=== PATIENT | male | born 1985 | race Caucasian/White ===

== ENCOUNTER → 2020-06-11 11:07 | Outpatient (BNVA) | payer MEDICAID, SELFPAY | PROVIDERS: Referring Provider Internal Medicine; Visit Provider Surgery | DX: E66.01 Morbid (severe) obesity due to excess calories (principal) | CPT/HCPCS: 99212 ==

== ENCOUNTER 2020-07-02 07:57 | Outpatient (REF) | payer MEDICAID, SELFPAY ==
--- NOTE | 2020-07-02 | US_ITS ---
EXAMINATION: US COMPLETE ABDOMEN WITH LIVER ELASTOGRAPHY CLINICAL INFORMATION: Obesity COMPARISON: None. TECHNIQUE: Real-time imaging of the abdominal viscera. Noninvasive ultrasound liver fibrosis assessment is performed using Ronny ElastPQ point quantification shear wave elastography (pSWE) with a 5 MHz transducer. Multiple elastography samples are obtained. FINDINGS: PANCREAS: Not well visualized due to overlying bowel gas. ABDOMINAL AORTA: The proximal, middle, and distal aortic segments are normal in caliber. INFERIOR VENA CAVA: Visualized portions are normal. LIVER: Liver echotexture is increased. The liver is normal in contour. No focal lesion or intrahepatic biliary duct dilatation. The right lobe measures 20 cm in length. The left lobe measures 13 cm in length. Main portal vein is patent with appropriate hepatopedal flow. Shear wave elastography provides a median stiffness of 2.4 m/s (reference: normal median stiffness is 0.81 - 1.22 m/s). The IQR/median stiffness to assess sampling precision is 1.8 (reference: optimal IQR/median stiffness is under 0.3). Exam is limited due to sampling error. GALLBLADDER: Normal. The gallbladder is physiologically distended without evidence of stones, sludge, polyps, wall thickening or pericholecystic fluid. COMMON BILE DUCT: Normal in caliber measuring 0.6 cm in diameter. RIGHT KIDNEY: Normal. No hydronephrosis. No renal calculi or focal parenchymal lesions. The kidney measures 10 cm in maximum dimension. LEFT KIDNEY: Normal. No hydronephrosis. No renal calculi or focal parenchymal lesions. The kidney measures 11.5 cm in maximum dimension. SPLEEN: Normal. The spleen measures 11 cm in maximum dimension. FREE FLUID: None. US/US abdomen comp w elastography IMPRESSION: 1. Impression Enlarged echogenic liver probably representing fatty infiltration. Limited visualization of the pancreas. 2. Elastography: Limited due to sampling error.
--- NOTE | 2020-07-02 08:36 | FL_ITS ---
EXAMINATION: FL UPPER GI SERIES CLINICAL INFORMATION: Bariatric service evaluation. COMPARISON: None TECHNIQUE: Upper GI series is performed using fluoroscopic evaluation in addition to multiple fluoroscopic spot views. The patient is imaged both upright and prone and using both thick and thin barium sulfate along with effervescent granules. Fluoroscopy time: 1.1 minutes DAP: 45.013 Gycm2 Fluoroscopic spot images: 15 FINDINGS: There is normal esophageal motility. There is no obstruction, stricture, ulceration, or hernia. No gastroesophageal reflux is demonstrated. The stomach shows no thickened folds or ulcer crater or outlet obstruction. The duodenal bulb is pliable and without ulcer crater or scarring. The post bulbar duodenum the jejunal mucosal pattern are unremarkable. There is incidental small diverticulum descending duodenum, perhaps 1 cm. FL/FL upper GI series IMPRESSION: Normal study. Tiny duodenal diverticulum.
== END 2020-07-02 07:58 | disposition home or self-care (01) ==
LOC: HO.US 07:57
PROVIDERS: Visit Provider Surgery
DX: Z01.818 Encounter for other preprocedural examination (principal); E66.9 Obesity, unspecified; K21.9 Gastro-esophageal reflux disease without esophagitis
CPT/HCPCS: 74240; 76705; 76981

== ENCOUNTER → 2020-07-04 07:56 | Outpatient (REF) | payer MEDICAID, SELFPAY ==
--- NOTE | 2020-07-04 08:15 | CA_ITS ---
Transthoracic Echocardiogram Patient (Last, First, Middle): Иван Lino, Gender: Male Date of : 1985 Age: 35 Procedure Date: 07/04/2020 Procedure Type: Transthoracic Echocardiogram Location: OP Height: 177.8 cm Weight: 204.12 kg BSA: 2.95 m2 Heart Rate: bpm BP: 140 / 82 mmHg Hr Operations Advisor: DAVINA Referring MD: Kane Skelton MD Carriage Feeder: Tristen Beck MD Symptoms: DYSPNEA ON EXERTION, I10 HTN PRE OP Z01.818 Study Quality: Technically Difficult ECG Rhythm: Sinus Conclusions: - 1. Low normal LV systolic function with mild LVH with normal diastolic function 2. Normal cardiac valvular Doppler 3. Normal RV systolic pressure 4. No gross pericardial effusion Findings Procedure Information Contrast agent, definity, is being given per protocol without apparent complications. Left Ventricle Normal left ventricular cavity size. There is mildly increased left ventricular wall thickness. The left ventricular systolic function is low normal. The visually estimated ejection fraction is between 50-55%. Diastolic function is normal for age. Right Ventricle Normal right ventricular cavity size and systolic function. Atria The left atrium is likely dilated. Interatrial shunt cannot be excluded. The right atrium was not well visualized. Aortic Valve The aortic valve structure and function is likely normal. There is no aortic valve stenosis. There is no aortic valve regurgitation. Mitral Valve Likely normal mitral valve structure and function. There is trace mitral valve regurgitation. There is no mitral valve stenosis. Pulmonic Valve The pulmonic valve was not well visualized. Tricuspid Valve Likely normal tricuspid valve structure and function. There is trace tricuspid valve regurgitation. The right ventricular systolic pressure is normal. The right ventricular systolic pressure is 21 mmHg. There is no evidence of pulmonary hypertension. Great Vessels All visible segments of the aorta are normal in size. The pulmonary artery was not well visualized. Venous The inferior vena cava is normal in size and collapses greater than 50% with inspiration. Pericardium/Pleural There is no evidence of pericardial effusion. Prior Study Comparison No prior study available for comparison. Measurements 2D Linear Measurements IVSd: 1.20 0.6-0.9/0.6-1.0 cm LVIDd: 5.28 3.9-5.3/4.2-5.9 cm LVIDd Index: 1.79 2.4-3.2/2.2-3.1 cm/m2 LVIDs: 3.57 2.0-3.6 cm LVPWd: 1.21 0.7-1.1 cm Ao Root: 3.50 2.1-3.5 cm LA Diam: 4.50 2.7-3.8/3.0-4.0 cm LAIDs Index: 1.53 1.5-2.3 cm/m2 LV Mass: 319.86 67-162/88-224 g LV Mass Index: 108.43 43-95/49-115 g/m2 LVOT Diam: 2.50 3.0+(-)1.3 cm 2D Systolic Function EF 4C: 40.30 >55% EF 2C: 42.70 >55% Mitral Valve MV Pk E: 0.84 MV PK A: 0.52 MV Decel Time: 211.00 E/A: 1.60 E'Lateral: 10.80 E'Medial: 9.28 E/E' Med: 9.00 E/E' Lat: 7.80 PHT: 62.00 MVA PHT: 3.55 Decel Harper: 3.97 Aortic Valve AoV Pk Anson: 1.14 AoV Mn Anson: 0.79 AoV VTI: 0.24 AoV Pk Grad: 5.00 Aov Mn Grad: 3.00 AIDEN Cont.VTI: 4.83 LVOT LVOT Pk Anson: 1.00 LVOT Mn Anson: 0.65 LVOT VTI: 0.23 LVOT Pk Grad: 4.00 LVOT Mn Grad: 2.00 LVOT Diam: 2.50 LVOT Area: 4.91 Diastolic Function MV Pk E: 0.84 MV Pk A: 0.52 E/A: 1.60 E'Medial: 9.28 E/E' Med: 9.00 E' Laterial: 10.80 E/E' Lat: 7.80 Tricuspid Valve TR Pk Anson: 1.96 TR Pk Grad: 15.00 RA Press: 3.00 RVSP: 21.00 Great Vessels Aorta Ao Root-2D: 3.50 2.0-3.7 cm Ao Asc: 2.80 2.1-3.4 cm Pulmonary Valve PV Pk Anson: 1.26 Peak PV Grad: 6.00 Updated in Other Vendor System with Status of Final Tristen Beck MD electronically signed on 07/04/2020 2:52:37 PM with status of Final
== END ==
LOC: HO.CARD 07:56
PROVIDERS: PCP Internal Medicine; Visit Provider Internal Medicine Pulmonary Disease
DX: Z01.818 Encounter for other preprocedural examination (principal); I10 Essential (primary) hypertension
CPT/HCPCS: 93306; Q9957

== ENCOUNTER → 2020-07-10 10:50 | Outpatient (BNVA) | payer MEDICAID, SELFPAY | PROVIDERS: PCP Internal Medicine; Referring Provider Internal Medicine; Visit Provider Surgery | DX: Z76.89 Persons encountering health services in other specified circumstances (principal) ==

== ENCOUNTER → 2020-07-12 13:08 | Outpatient (BNVA) | payer MEDICAID, SELFPAY | PROVIDERS: PCP Internal Medicine; Referring Provider Internal Medicine; Visit Provider Surgery | DX: L73.9 Follicular disorder, unspecified (principal) | CPT/HCPCS: 46600; 99202 ==

== ENCOUNTER → 2020-07-30 08:03 | Outpatient (BNVA) | payer MEDICAID, SELFPAY | PROVIDERS: PCP Internal Medicine; Referring Provider Internal Medicine; Visit Provider Surgery | DX: Z76.89 Persons encountering health services in other specified circumstances (principal) ==

== ENCOUNTER → 2020-08-31 08:15 | Outpatient (BNVA) | payer MEDICAID, SELFPAY | PROVIDERS: PCP Internal Medicine; Visit Provider Surgery | DX: Z76.89 Persons encountering health services in other specified circumstances (principal) ==

== ENCOUNTER → 2020-09-21 10:48 | Outpatient (BNVA) | payer MEDICAID, SELFPAY | PROVIDERS: PCP Internal Medicine; Visit Provider Physician Assistant ==

== ENCOUNTER → 2020-09-24 08:12 | Outpatient (BNVA) | payer MEDICAID, SELFPAY | PROVIDERS: PCP Internal Medicine; Visit Provider Surgery ==

== ENCOUNTER → 2020-10-03 09:04 | Outpatient (BNVA) | payer MEDICAID, SELFPAY | PROVIDERS: PCP Internal Medicine; Visit Provider Internal Medicine Pulmonary Disease | DX: G47.33 Obstructive sleep apnea (adult) (pediatric) (principal) | CPT/HCPCS: 99212 ==

== ENCOUNTER → 2020-10-22 08:16 | Outpatient (BNVA) | payer MEDICAID, SELFPAY | PROVIDERS: PCP Internal Medicine; Visit Provider Surgery ==

== ENCOUNTER → 2020-11-21 08:10 | Outpatient (BNVA) | payer MEDICAID, SELFPAY | PROVIDERS: PCP Internal Medicine; Visit Provider Surgery ==

== ENCOUNTER → 2021-01-08 10:19 | Outpatient (BNVA) | payer MEDICAID, SELFPAY | PROVIDERS: PCP Internal Medicine; Visit Provider Internal Medicine Pulmonary Disease | DX: G47.33 Obstructive sleep apnea (adult) (pediatric) (principal); E66.01 Morbid (severe) obesity due to excess calories | CPT/HCPCS: 99212 ==

== ENCOUNTER → 2021-01-24 10:11 | Outpatient (BNVA) | payer MEDICAID, SELFPAY | PROVIDERS: PCP Internal Medicine; Referring Provider Internal Medicine; Visit Provider Surgery | DX: L73.9 Follicular disorder, unspecified (principal) | CPT/HCPCS: 99212 ==

== ENCOUNTER 2022-01-29 11:48 | Outpatient (REF) | payer MEDICAID, SELFPAY ==
--- NOTE | ~2022-01-29 | XR_ITS ---
EXAMINATION: XR LUMBOSACRAL SPINE CLINICAL INFORMATION: Low back pain COMPARISON: None TECHNIQUE: Three views of the lumbosacral spine. FINDINGS: 5 nonrib-bearing lumbar vertebral bodies are visualized. Alignment is within normal limits. Lumbar vertebral body heights are maintained. There is moderate narrowing of the L5/S1 disc space height. Sacroiliac joints are grossly symmetric. The pelvic ring appears intact. XR/XR lumbar spine 2-3V IMPRESSION: Mild degenerative changes of the lower lumbar spine.
== END 2022-01-29 11:49 | disposition home or self-care (01) ==
LOC: HO.XRAY 11:48
PROVIDERS: Visit Provider Internal Medicine
DX: M54.50 Low back pain, unspecified (principal)
CPT/HCPCS: 72100

== ENCOUNTER → 2022-08-04 08:58 | Outpatient (BNVA) | payer MEDICAID, SELFPAY | PROVIDERS: PCP Internal Medicine; Visit Provider Surgery | DX: K62.89 Other specified diseases of anus and rectum (principal) | CPT/HCPCS: 99212 ==

== ENCOUNTER → 2022-09-29 08:50 | Outpatient (BNVA) | payer MEDICAID, SELFPAY | PROVIDERS: PCP Internal Medicine; Referring Provider Internal Medicine; Visit Provider Surgery | DX: K61.0 Anal abscess (principal); I10 Essential (primary) hypertension; E66.01 Morbid (severe) obesity due to excess calories; Z68.44 Body mass index [BMI] 60.0-69.9, adult | CPT/HCPCS: 99212 ==

== ENCOUNTER 2023-03-25 10:25 | Outpatient (REF) | payer MEDICAID, SELFPAY ==
[2023-03-25 14:50] LABS: MANUAL DIFF FLAG NO
[2023-03-25 14:56] LABS: Basophils Absolute Auto 0.1 X10*3/uL (0.0-0.2); Basophils Percent Auto 0.7 % (0-2); Eosinophils Absolute Auto 0.2 X10*3/uL (0.0-0.4); Eosinophils Percent Auto 2.7 % (0-4); Hematocrit 46.5 % (42.0-52.0); Hemoglobin 14.3 g/dl (14.0-18.0); Imm Gran Abs Auto 0.04 X10*3/uL (0.00-0.03); Imm Gran Pct Auto 0.5 % (0.0-0.4); Lymphocytes Absolute Auto 1.7 X10*3/uL (1.2-4.9); Lymphocytes Percent Auto 20.3 % (20-40); Mean Corpuscular HGB Conc 30.8 g/dl (31.0-36.0); Mean Corpuscular Hemoglobin 28.9 pg (27.0-33.0); Mean Corpuscular Volume 93.9 fL (80.0-98.0); Mean Platelet Volume 12.6 fL (9.4-12.4); Monocytes Absolute Auto 0.6 X10*3/uL (0.1-1.2); Monocytes Percent Auto 7.4 % (2-11); Neutrophils Absolute Auto 5.7 x10*3/uL (2.0-8.3); Neutrophils Percent Auto 68.4 % (45-73); Platelet Count 193 X10*3/uL (160-400); Red Blood Count 4.95 X10*6/uL (4.60-5.80); Red Cell Distribution Width 14.4 % (11.0-16.0); White Blood Count 8.4 X10*3/uL (4.8-10.8)
[2023-03-25 15:03] LABS: Estimated Average Glucose 100 mg/dL; Hemoglobin A1c % 5.1 %
[2023-03-25 16:01] LABS: Alanine Aminotransferase 11 U/L (0-40); Albumin Level 3.7 g/dL (3.5-5.0); Alkaline Phosphatase 143 U/L (39-117); Anion Gap 17 (12-20); Aspartate Amino Transferase 13 U/L (5-37); Bilirubin Direct 0.2 mg/dL (0.0-0.5); Bilirubin Total 0.4 mg/dL (0.0-1.0); Blood Urea Nitrogen 17 mg/dL (9-16); Calcium 9.3 mg/dL (8.4-10.2); Carbon Dioxide 23 mmol/L (22-29); Chloride 108 mmol/L (96-108); Cholesterol 152 mg/dL; Estimated Glomerular Filt Rate 46; Glucose Fasting 61 mg/dL (60-99); HDL Cholesterol 35 mg/dL; LDL Cholesterol Calculated 90 mg/dl; Sodium 143 mmol/L (135-145); Total Protein 7.7 g/dL (6.5-8.0); Triglycerides 135 mg/dL
== END 2023-03-25 10:26 | disposition home or self-care (01) ==
LOC: HO.CHCLDS 10:25
PROVIDERS: Visit Provider Internal Medicine
DX: E66.01 Morbid (severe) obesity due to excess calories (principal)
CPT/HCPCS: 36415; 80053; 80061; 80076; 82248; 83036; 85025

== ENCOUNTER 2023-07-24 11:11 | Outpatient (REF) | payer MEDICAID, SELFPAY ==
[2023-07-24 14:51] LABS: Anion Gap 12 (12-20); Blood Urea Nitrogen 18 mg/dL (9-16); Carbon Dioxide 25 mmol/L (22-29); Chloride 109 mmol/L (96-108); Estimated Glomerular Filt Rate 44; Glucose Random 92 mg/dL (60-115); Potassium 4.6 mmol/L (3.3-5.1); Sodium 141 mmol/L (135-145)
== END 2023-07-24 11:12 | disposition home or self-care (01) ==
LOC: HO.CHCLDS 11:11
PROVIDERS: Visit Provider Internal Medicine
DX: N17.9 Acute kidney failure, unspecified (principal)
CPT/HCPCS: 36415; 80048

== ENCOUNTER 2023-11-04 10:22 | Outpatient (REF) | payer MEDICAID, SELFPAY ==
[2023-11-04 14:14] LABS: Appearance Urine Clear; Color Urine Yellow; Glucose Urine UA Negative (Negative); Leukocyte Esterase Urine Negative (Negative); Nitrite Urine Negative (Negative); Urine Blood Negative (Negative); Urine Ketones Trace mg/dL (Negative); Urine Protein Trace mg/dL (Neg-Trace)
[2023-11-04 14:18] LABS: MANUAL DIFF FLAG NO
[2023-11-04 14:22] LABS: Basophils Absolute Auto 0.1 X10*3/uL (0.0-0.2); Basophils Percent Auto 0.5 % (0-2); Eosinophils Absolute Auto 0.4 X10*3/uL (0.0-0.4); Eosinophils Percent Auto 3.2 % (0-4); Hematocrit 43.1 % (42.0-52.0); Hemoglobin 13.7 g/dl (14.0-18.0); Imm Gran Abs Auto 0.06 X10*3/uL (0.00-0.03); Imm Gran Pct Auto 0.5 % (0.0-0.4); Lymphocytes Absolute Auto 1.9 X10*3/uL (1.2-4.9); Lymphocytes Percent Auto 17.2 % (20-40); Mean Corpuscular HGB Conc 31.8 g/dl (31.0-36.0); Mean Corpuscular Hemoglobin 28.5 pg (27.0-33.0); Mean Corpuscular Volume 89.6 fL (80.0-98.0); Mean Platelet Volume 12.5 fL (9.4-12.4); Monocytes Absolute Auto 0.8 X10*3/uL (0.1-1.2); Monocytes Percent Auto 7.1 % (2-11); Neutrophils Absolute Auto 7.9 x10*3/uL (2.0-8.3); Neutrophils Percent Auto 71.5 % (45-73); Platelet Count 221 X10*3/uL (160-400); Red Blood Count 4.81 X10*6/uL (4.60-5.80); Red Cell Distribution Width 14.9 % (11.0-16.0)
[2023-11-04 14:47] LABS: Creatinine Urine 316.51 mg/dL; Microalbum/Creatinine Ratio Ur 15.4 ug/mg cr (<30); Protein/Creatinine Ratio, Ur 0.08 (<0.2); Total Protein Urine Random 26 mg/dL (<12)
[2023-11-04 14:59] LABS: Anion Gap 13 (12-20); Blood Urea Nitrogen 13 mg/dL (9-16); Calcium 9.3 mg/dL (8.4-10.2); Carbon Dioxide 26 mmol/L (22-29); Chloride 108 mmol/L (96-108); Estimated Glomerular Filt Rate 53; Potassium 4.1 mmol/L (3.3-5.1); Sodium 143 mmol/L (135-145)
[2023-11-04 15:06] LABS: Estimated Average Glucose 100 mg/dL; Hemoglobin A1c % 5.1 % (<6.0)
[2023-11-04 15:15] LABS: TSH reflex Free T4 1.25 uIU/mL (0.32-4.0)
[2023-11-04 15:21] LABS: Alanine Aminotransferase 9 U/L (0-40); Albumin Level 3.7 g/dL (3.5-5.0); Alkaline Phosphatase 133 U/L (39-117); Aspartate Amino Transferase 11 U/L (5-37); Bilirubin Direct 0.1 mg/dL (0.0-0.5); Bilirubin Total 0.4 mg/dL (0.0-1.0); Cholesterol 132 mg/dL (<200); HDL Cholesterol 30 mg/dL (>40); LDL Cholesterol Calculated 78 mg/dL (<100); Triglycerides 121 mg/dL (<150)
[2023-11-04 16:22] LABS: Uric Acid 10.4 mg/dL (3.4-7.0)
[2023-11-05 04:33] LABS: ~HepC Num1 0.17 S/CO (0.00-0.79); ~Hepatitis C Antibody Nonreactive (Nonreactive)
== END 2023-11-04 10:23 | disposition home or self-care (01) ==
LOC: HO.CHCLDS 10:22
PROVIDERS: Referring Provider Internal Medicine; Visit Provider Internal Medicine
DX: E66.01 Morbid (severe) obesity due to excess calories (principal); N17.9 Acute kidney failure, unspecified
CPT/HCPCS: 36415; 80051; 80061; 80076; 81003; 82043; 82306; 82310; 82565; 82570; 83036; 83970; 84156; 84443; 84520; 84550; 85025; 86803

== ENCOUNTER 2024-01-28 11:17 | Outpatient (REF) | payer MEDICARE, MEDICAID, SELFPAY ==
[2024-01-28 14:06] LABS: MANUAL DIFF FLAG NO
[2024-01-28 14:09] LABS: Appearance Urine Cloudy; Color Urine Dark Yellow; Glucose Urine UA Negative (Negative); Leukocyte Esterase Urine Negative (Negative); Nitrite Urine Negative (Negative); PH 5.5 (5.0-9.0); Specific Gravity - Urine >= 1.030 (1.005-1.025); UMIC TRIGGER UA YES; Urine Blood Negative (Negative); Urine Ketones Trace mg/dL (Negative); Urine Protein 30 (1+) mg/dL (Neg-Trace)
[2024-01-28 14:18] LABS: Estimated Average Glucose 97 mg/dL
[2024-01-28 14:22] LABS: Basophils Absolute Auto 0.1 X10*3/uL (0.0-0.2); Basophils Percent Auto 0.8 % (0-2); Eosinophils Absolute Auto 0.2 X10*3/uL (0.0-0.4); Eosinophils Percent Auto 3.4 % (0-4); Hematocrit 45.9 % (42.0-52.0); Hemoglobin 14.8 g/dl (14.0-18.0); Imm Gran Abs Auto 0.02 X10*3/uL (0.00-0.03); Imm Gran Pct Auto 0.3 % (0.0-0.4); Lymphocytes Absolute Auto 1.7 X10*3/uL (1.2-4.9); Mean Corpuscular HGB Conc 32.2 g/dl (31.0-36.0); Mean Corpuscular Hemoglobin 29.1 pg (27.0-33.0); Mean Corpuscular Volume 90.2 fL (80.0-98.0); Mean Platelet Volume 12.5 fL (9.4-12.4); Monocytes Absolute Auto 0.5 X10*3/uL (0.1-1.2); Monocytes Percent Auto 8.5 % (2-11); Neutrophils Absolute Auto 3.5 x10*3/uL (2.0-8.3); Platelet Count 201 X10*3/uL (160-400); Red Blood Count 5.09 X10*6/uL (4.60-5.80); Red Cell Distribution Width 14.6 % (11.0-16.0)
[2024-01-28 14:24] LABS: Bacteria Urine Trace (None Seen); Granular Casts Urine Present; RBC Urine 0-2 /HPF (0-2); WBC Urine 0-5 /HPF (0-5)
[2024-01-28 14:30] LABS: Parathyroid Hormone Intact 274.6 pg/mL (8.7-77.1)
[2024-01-28 14:37] LABS: Blood Urea Nitrogen 20 mg/dL (9-16); Carbon Dioxide 19 mmol/L (22-29); Chloride 110 mmol/L (96-108); Estimated Glomerular Filt Rate 32; Iron 59 mcg/dL (45-160); Magnesium 2.3 mg/dL (1.6-2.6); Percent Iron Saturation 28 % (15-50); Phosphorus 2.5 mg/dL (2.7-4.5); Potassium 4.1 mmol/L (3.3-5.1); Sodium 142 mmol/L (135-145); Total Iron Binding Capacity 210 mcg/dL (228-428); Unsaturated Iron Binding 151 ug/dL
[2024-01-28 14:46] LABS: Anion Gap 13 (12-20); Uric Acid 14.8 mg/dL (3.4-7.0)
[2024-01-28 14:48] LABS: Ferritin 338 ng/mL (20-250)
[2024-01-28 15:15] LABS: Creatinine Urine 577.97 mg/dL; Microalbum/Creatinine Ratio Ur 9.1 ug/mg cr (<30); Total Protein Urine Random 56 mg/dL (<12)
== END 2024-01-28 11:18 | disposition home or self-care (01) ==
LOC: HO.CHCLDS 11:17
PROVIDERS: Visit Provider Internal Medicine
DX: N17.9 Acute kidney failure, unspecified (principal); N18.30 Chronic kidney disease, stage 3 unspecified; I12.9 Hypertensive chronic kidney disease with stage 1 through stage 4 chronic kidney disease, or unspecified chronic kidney disease
CPT/HCPCS: 36415; 80051; 81001; 82043; 82306; 82310; 82565; 82570; 82728; 83036; 83540; 83735; 83970; 84100; 84156; 84520; 84550; 85025

== ENCOUNTER 2025-04-18 10:52 | Outpatient (REF) | payer OTHER, SELFPAY ==
--- OUTSIDE RECORDS SUMMARY | 2025-04-18 11:45 | XMS_ITS | Encounter Summary ---
Author Organization [employer] Address [address] [place] [address] Care Team Providers Care Card Seller Name Role Phone Chris Ackerman MD Primary Care Prov ider Reason for Visit * Reason Onset Date Comments Nurse Triage 12/15/2023 Encounter Details Date Type Department Care Team ([facility] st Contact Info) Description 12/15/2023 Telephone [facility] MEDICINE [address] [place] [address] Chris Ackerman MD [address] [place] [address] Nurse Triage Social History Tobacco Use Types Packs/Day Years Used Date Smoking Tobacco: Former Cigarettes Q uit: 2022 Smokeless Tobacco: Never Alcohol Use Standard Drinks/Week Comments Defer 0 (1 standard drink = 0.6 oz pur e alcohol) Depression Answer Date Recorded Patient Health Questionnaire-9 Score 2 11/04/2023 Patient Health Questionnaire-9 Score 2 11/04/2023 Last PHQ-9: Questionnaire Data Not on file 0 11/04/2023 Housing Stability Answer Date Recorded What is your housing situation today? I have shelli sung 06/09/[address] you li ve. Do you have problems with any of the following? None of the above 06/09/2023 Food Insecurity Answer Date Recorded Within the past 12 months, y ou worried that your food would run out before you got money to buy more: Sometimes True 2022 Within the past 12 months,th e food you bought just didn't last and you didn't have enough money to get more: Sometimes True 07/29/2023 Transportation Answer Date Recorded In the past 12 months, has l ack of transportation kept you from medical appts, meetings, work or from getting things needed for daily living? No 06/09/2023 Utilities Answer Date Recorded In the past 12 months, has t he electric, gas, oil or water company threatened to shut off services in your home? No 06/09/2023 Depression Answer Date Recorded Patient Health Questionnaire-2 Score 2 11/04/2023 Sex and Gender Information Value Date Recorded Sex Assigned at Male 06/23/2022 10:19 AM EDT Legal Sex Male 10:19 AM EDT Gender Identity Male 06/23/2022 10:19 AM EDT Sexual Orientation Straight 06/23/2022 10 :19 AM EDT documented as of this encounter Miscellaneous Notes * Telephone Encounter - Iveth Robbins RN - 12/15/2023 12:24 PM EDT Triage call Pt reports increased low back pain . Pt has chronic low back pain but, recently for last 2 days it has become more severe. Pt reports radiation of pain into right leg which comes and goes. Pt is using cane for ambulation but, getting up to start walking is extremely painful. Pt is taking prescribed gabapentin for pain with out much effect. Pt is ambulating with a limp. Pt is advised to try ice/heat to the low back , tylenol/motrin for pain which ever one the PCP has advised. Pt agrees with disposition and tele visit with PCP arranged for 130pm today. Pt insurance is verified as active prior to booking. Protocol Used: Back Pain (Adult) Protocol-Based Disposition: See in Office or Video Visit Today Video visit offered and caller accepted Positive Triage Question: * Severe back pain (e.g., excruciating, unable to do any normal activities) and not improved after pain medicine and Care Advice * All higher-acuity triage questions were negative Care Advice Discussed: * Reassurance and Education - Back Pain * Cold or Heat * Sleep * Activity * Pain Medicines * Pain Medicines - Extra Notes and Warnings * Reasons To Call Back - Fever occurs - Numbness or weakness occurs, or bowel/bladder problems - Pain begins to shoot into the leg - Pain persists over 2 weeks - Pain becomes worse - You become worse * Telephone Encounter - Nella Mazariegos - 12/15/2023 12:01 PM EDT Symptom: Back Pain - Not From Injury Outcome: Schedule an urgent appointment (within 1 hour) or talk to a nurse or provider soon Reason: Weakness of the leg The caller accepted this outcome documented in this encounter Plan of Treatment Upcoming Encounters Date Type Department Care Team (Late st Contact Info) Description 09/25/2025 3:00 PM EST Office Visit [facility] ADULT D[facility]AL [address] [place] [address] Johnie Kearns documented as of this encounter Visit Diagnoses Not on filedocumented in this encounter Additional Health Concerns Assessment Noted Time PHQ-9 Depression Total Score: 2 11/04/19 24 9:37 AM EDT documented as of this encounter Care Teams Card Seller Relationship Specialty Start Date End Date Chris Ackerman MD [address] [place] [address] PCP - General Internal Medicine 05/24/20 Haleigh Vanegas Dope House Operator HelperFire Prevention Captain 12/28/23 [employer] 01/14/25 documented as of this encounter
--- OUTSIDE RECORDS SUMMARY | 2025-04-18 11:45 | XMS_ITS | Encounter Summary ---
Author Organization [employer] Address [address] [place] [address] Care Team Providers Care Char Dust Cleaner And Salvager Name Role Phone Chris Ackerman MD Primary Care Prov ider Reason for Visit * Reason Comments Med Change Request Encounter Details Date Type Department Care Team ([facility] Contact Info) Description 07/25/2024 Refill [facility] PEDS [address] [place] [address] Chris Ackerman MD [address] [place] [address] Social History Tobacco Use Types Packs/Day Years Used Date Smoking Tobacco: Every Day Cigarettes Last attempted to quit: 2022 Smokeless Tobacco: Never Alcohol Use Standard [...] AM EDT documented as of this encounter Plan of Treatment Upcoming Encounters Date Type Department Care Team (Late st Contact Info) Description 09/25/2025 3:00 PM EST Office Visit [facility] ADULT DENTAL [address] [place] [address] Johnie Kearns documented as of this encounter Visit Diagnoses Not on filedocumented in this encounter Additional Health Concerns Assessment Noted Time PHQ-9 Depression Total Score: 2 11/04/19 24 9:37 AM EDT documented as of this encounter Care Teams Char Dust Cleaner And Salvager Relationship Specialty Start Date End Date Chris Ackerman MD [address] [place] [address] PCP - General Internal Medicine 05/24/20 Haleigh Vanegas Stagecraft ProfessorInsurance Administrative Assistant 12/28/23 [employer] 01/14/25 documented as of this encounter
--- OUTSIDE RECORDS SUMMARY | 2025-04-18 11:45 | XMS_ITS | Encounter Summary ---
Author Organization [facility] Address [address] [place] [address] Care Team Providers Care Adjunct Psychology Instructor Name Role Phone Chris Ackerman Primary Care Provide r Encounter Details Date Type Department Care Team (Late st Contact Info) Description 01/23/2025 Lab Requisition [facility] - Main Lab [address] [facility] [place] [phone] Jossie Raygoza NP [address] [facility] [address] [place] [address] Arthritis due to other bacteria, left knee ([facility] V24, [facility] V28); Chronic kidney disease, stage 4 (severe) ([facility] V24, [facility] V28) Social History Tobacco Use Types Packs/Day Years Used Date Smoking Tobacco: Every Day Cigarettes Smokeless Tobacco: Never Comments:3 cigarettes/day Alcohol Use Standard Drinks/Week Comments Never 0 (1 standard drink = 0.6 oz pur e alcohol) Interpersonal Safety Answer Date Record ed Physical Abuse 01/17/2025 Verbal Abuse 01/17/2025 Sex and Gender Information Value Date Recorded Sex Assigned at Male 04/13/2025 9:14 AM EDT Legal Sex Male 9:56 PM EST Gender Identity Male 04/13/2025 9:14 AM EDT Sexual Orientation Choose not to disclose 2024 9:14 AM EDT documented as of this encounter Functional Status * Are you deaf or do you have serious difficulty hearing? Answer Date of Assessment Author No 01/20/2025 1:59 AM Erica Alatorre RN * Are you blind or do you have serious difficulty seeing, even when wearing glasses? Answer Date of Assessment Author No 01/20/2025 1:59 AM Erica Alatorre RN * Do you have serious difficulty walking or climbing stairs? Answer Date of Assessment Author No 01/20/2025 1:59 AM Erica Alatorre RN * Do you have serious difficulty dressing or bathing? Answer Date of Assessment Author No 01/20/2025 1:59 AM Erica Alatorre RN * Because of a physical, mental, or emotional condition, do you have serious difficulty doing errandsalone such as visiting the doctor? Answer Date of Assessment Author No 01/20/2025 1:59 AM Erica Alatorre RN documented as of this encounter Mental Status * Because of a physical, mental, or emotional condition, do you have serious difficulty concentrating, remembering, or making decisions? (5 years old or older) Answer Entry Date Author No 01/20/2025 1:59 AM Erica Alatorre RN documented in this encounter Plan of Treatment Upcoming Encounters Date Type Department Care Team (Late st Contact Info) Description 04/21/2025 8:45 AM EDT Office Visit Orthopedic Surgery [facility] [address] [facility] [address] [place] [address] Mayte Kamara MD [address] [place] [address] 05/10/2025 9:00 AM EDT Evaluation [facility] [address] [facility] [address] [place] [phone] Sanjuana Pradhan PT 05/29/2025 1:15 PM EDT Office Visit Orthopedic Surgery [facility] [address] [facility] [address] [place] [phone] Chino Santana DPM [address] [place] [address] 07/27/2025 1:45 PM EST Office Visit Bariatric Surgery [facility] [address] [facility] [address] [place] [address] Silvestre Finn MD [address] [place] [phone] documented as of this encounter Procedures Procedure Name Priority Date/Time Associated Diagnosis Comments CBC WITH AUTO DIFFERENTIAL Routine 01/23/2025 1:00 PM EDT Arthritis due to other bacteria, left knee (CMS/HCC V24, CMS/HCC V28) Chronic kidney disease, stage 4 (severe) (CMS/HCC V24, CMS/HCC V28) CBC AND DIFFERENTIAL Routine 01/23/2025 1:00 PM EDT Arthritis due to other bacteria, left knee (CMS/HCC V24, CMS/HCC V28) Chronic kidney disease, stage 4 (severe) (CMS/HCC V24, CMS/HCC V28) BASIC METABOLIC PANEL Routine 01/23/2025 1:00 PM EDT Arthritis due to other bacteria, left knee (CMS/HCC V24, CMS/HCC V28) Chronic kidney disease, stage 4 (severe) (CMS/HCC V24, CMS/HCC V28) documented in this encounter Results * (ABNORMAL) CBC auto differential (01/23/2025 1:00 PM EDT) [facility] WBC 9.5 4.8 - 10.8 K/mcL LAB HEMETOLOGY METHOD 01/23/2025 2:20 PM EDT [facility] RBC 4.00(L) 4.50 - 5.50 M/mcL LAB HEMETOLOGY METHOD 01/23/2025 2:20 PM EDT [facility] Hemoglobin 11.4(L) 13.5 - 17.5 g/dL LAB HEMETOLOGY METHOD 01/23/2025 2:20 PM EDT [facility] Hematocrit 36.5(L) 42.0 - 54.0 % LAB HEMETOLOGY METHOD 01/23/2025 2:20 PM EDT [facility] MCV 91.5 79.0 - 98.0 FL LAB HEMETOLOGY METHOD 01/23/2025 2:20 PM EDT [facility] MCH 28.6 27.0 - 32.0 pcg LAB HEMETOLOGY METHOD 01/23/2025 2:20 PM EDT [facility] MCHC 31.2(L) 32.0 - 37.0 g/dL LAB HEMETOLOGY METHOD 01/23/2025 2:20 PM EDT [facility] RDW 15.0 11.0 - 15.0 % LAB HEMETOLOGY METHOD 01/23/2025 2:20 PM EDT [facility] Platelets 206 130 - 400 K/mcL LAB HEMETOLOGY METHOD 01/23/2025 2:20 PM EDT [facility] MPV 12.2(H) 7.0 - 11.0 FL LAB HEMETOLOGY METHOD 01/23/2025 2:20 PM EDT [facility] NRBC 0.0 <1.0 % LAB HEMETOLOGY METHOD 01/23/2025 2:20 PM EDT [facility] NRBC Absolute 0.00 <0.10 K/mcL LAB HEMETOLOGY METHOD 01/23/2025 2:20 PM EDT [facility] Neutrophils Relative 64.2 % LAB HEMETOLOGY METHOD 01/23/2025 2:20 PM EDT [facility] Lymphocytes Relative 24.4 % LAB HEMETOLOGY METHOD 01/23/2025 2:20 PM EDT [facility] Monocytes Relative 7.8 % LAB HEMETOLOGY METHOD 01/23/2025 2:20 PM EDT [facility] Eosinophils Relative 2.6 % LAB HEMETOLOGY METHOD 01/23/2025 2:20 PM EDT [facility] Basophils Relative 0.4 % LAB HEMETOLOGY METHOD 01/23/2025 2:20 PM EDT [facility] Immature Granulocytes Relative 0.6 % LAB HEMETOLOGY METHOD 01/23/2025 2:20 PM EDT [facility] Neutrophils Absolute 6.05 1.50 - 7.00 K/mcL LAB HEMETOLOGY METHOD 01/23/2025 2:20 PM EDT [facility] Lymphocytes Absolute 2.31 1.00 - 5.00 K/mcL LAB HEMETOLOGY METHOD 01/23/2025 2:20 PM EDT [facility] Monocytes Absolute 0.74 0.20 - 1.00 K/mcL LAB HEMETOLOGY METHOD 01/23/2025 2:20 PM EDT [facility] Eosinophils Absolute 0.25 0.00 - 0.50 K/mcL LAB HEMETOLOGY METHOD 01/23/2025 2:20 PM EDT [facility] Basophils Absolute 0.04 0.00 - 0.20 K/mcL LAB HEMETOLOGY METHOD 01/23/2025 2:20 PM EDT [facility] Immature Granulocytes Absolute 0.06(H) 0.00 - 0.03 K/mcL LAB HEMETOLOGY METHOD 01/23/2025 2:20 PM EDT [facility] Blood Venous blood specimen / Unknown 01/23/2025 1:00 PM EDT 01/23/2025 2:12 PM EDT us Jossie Raygoza NP LAB BLOOD ORDERABLES Final Resul t [facility] [address] [place] [address], [place] [phone] * (ABNORMAL) Basic metabolic panel (01/23/2025 1:00 PM EDT) Sodium 144 133 - 145 mmol/L LAB CHEMISTRY METHOD 01/23/2025 3:27 PM EDT [facility] Potassium 4.0 3.5 - 5.5 mmol/L LAB CHEMISTRY METHOD 01/23/2025 3:27 PM EDT [facility] Chloride 111(H) 96 - 110 mmol/L LAB CHEMISTRY METHOD 01/23/2025 3:27 PM EDT [facility] CO2 24 21 - 32 mmol/L LAB CHEMISTRY METHOD 01/23/2025 3:27 PM EDT [facility] Anion Gap 9 3 - 11 LAB CHEMISTRY METHOD 01/23/2025 3:27 PM EDT [facility] Glucose 78 70 - 100 mg/dL LAB CHEMISTRY METHOD 01/23/2025 3:27 PM EDT [facility] BUN 14 5 - 25 mg/dL LAB CHEMISTRY METHOD 01/23/2025 3:27 PM T [facility] Creatinine 1.39(H) 0.70 - 1.30 mg/dL LAB CHEMISTRY METHOD 01/23/2025 3:27 PM EDT [facility] eGFR 66 >=60 mL/min/1. 73m2 LAB CHEMISTRY METHOD 01/23/2025 3:27 PM EDT [facility] Comment:Calculation based on the Chronic Kidney Disease Epidemiology Collaboration (CKD-EPI) equation refit without adjustment for race. BUN/Creatinine Ratio 10.1 LAB CHEMISTRY METHOD 01/23/2025 3:27 PM EDT [facility] Calcium 8.1(L) 8.5 - 10.5 mg/dL LAB CHEMISTRY METHOD 01/23/2025 3:27 PM EDT [facility] Blood Venous blood specimen / Unknown 01/23/2025 1:00 PM EDT 01/23/2025 2:12 PM EDT us Jossie Raygoza NP LAB BLOOD ORDERABLES Final Resul t [facility] [address] [place] [address], [place] [phone] documented in this encounter Visit Diagnoses Diagnosis Arthritis due to other bacteria, left knee (CMS/[facility] V24, CMS/[facility] V28) Chronic kidney disease, stage 4 (severe) (CMS/[facility] V24, [facility] V28) documented in this encounter Care Teams Adjunct Psychology Instructor Relationship Specialty Start Date End Date Chris Ackerman [address] [place], [place] PCP - General Internal Medicine 09/10/21 documented as of this encounter
--- OUTSIDE RECORDS SUMMARY | 2025-04-18 11:45 | XMS_ITS | Encounter Summary ---
Author Organization [employer] Address [address] 7[address] [place] [address] Care Team Providers Care Explosives Operator Name Role Phone Chris Ackerman MD Primary Care Prov ider Encounter Details Date Type Department Care Team ([facility] st Contact Info) Description 07/03/2023 Orders Only [facility]S [address] [place], [place] [phone] Alessandro Kearns MD [address] [place] [address] Scar tissue Social History Tobacco Use Types Packs/Day Years Used Date Smoking Tobacco: Former Cigarettes Smokeless Tobacco: Never Alcohol Use Standard Drinks/Week Comments Defer 0 (1 standard drink = 0.6 oz pur e alcohol) Depression Answer Date Recorded Patient Health Questionnaire-9 Score 10 03/19/2023 Housing Stability Answer Date Recorded What is your housing situation today? I have shelli sung 06/09/[address] you li ve. Do you have problems with any of the following? None of the above 06/09/2023 Food Insecurity Answer Date Recorded Within the past 12 months, y ou worried that your food would run out before you got money to buy more: Never True 06/09/2023 Within the past 12 months,th e food you bought just didn't last and you didn't have enough money to get more: Never True Transportation Answer Date Recorded In the past [...] Answer Date Recorded Patient Health Questionnaire-2 Score 4 03/19/2023 Sex and Gender Information Value Date Recorded Sex Assigned at Male 06/23/2022 10:19 AM EDT Legal Sex Male 10:19 AM EDT Gender Identity Male 06/23/2022 10:19 AM EDT Sexual Orientation Straight 06/23/2022 10 :19 AM EDT documented as of this encounter Plan of Treatment Upcoming Encounters Date Type Department Care Team (Late st Contact Info) Description 09/25/2025 3:00 PM EST Office Visit [facility] ADULT DENTAL [address] [place] [address] Johnie Kearns documented as of this encounter Visit Diagnoses Diagnosis Scar tissue Scar condition and fibrosis of skin documented in this encounter Additional Health Concerns Assessment Noted Time PHQ-9 Depression Total Score: 10 023 9:25 AM EDT documented as of this encounter Care Teams Explosives Operator Relationship Specialty Start Date End Date Chris Ackerman MD [address] [place] [address] PCP - General Internal Medicine 05/24/20 Haleigh Vanegas Field Traffic InvestigatorFacility Specialist 12/28/23 [employer] 01/14/25 documented as of this encounter
--- OUTSIDE RECORDS SUMMARY | 2025-04-18 11:45 | XMS_ITS | Clinical Summary ---
Author Organization [facility] Address [address] [facility] [address] [place] [address] Phone Care Team Providers Care Bar Helper Name Role Phone Chris Walter Primary Care Provider Allergies No known active allergies Medications cholecalcifero l (VITAMIN D-3) 50 MCG (1999 UT) capsule Take 1 capsule by mouth 1 (one) time each day Active fluticasone (FLONASE) 50 MCG/ACT nasal spray 9 Active Acetaminophen Extra Strength 500 MG tablet TAKE 1 TABLET (500 MG) BY MOUTH EVERY 6 (SIX) HOURS IF NEEDED FOR MILD PAIN. 3 Active Blood Pressure kit 1 kit in the morning. 3 Active gabapentin (NEURONTIN) 300 MG capsule Take 300 mg by mouth 3 Active hydrocortisone 0.5 % cream APPLY TOPICALLY 2 TIMES DAILY. TO AFFECTED AREA 3 Active hydrOXYzine (VISTARIL) 25 MG capsule TAKE 1-2 CAPSULE BY MOUTH TWICE A DAY NEEDED FOR ANXIETY 3 Active BD Pen Needle Micro U/F 32G X 6 MM misc APPLY ROUTE DAILY. USE ONE NEW NEEDLE EVERY VICTOZA DOSE. 3 Active loratadine (CLARITIN) 10 MG tablet Take 10 mg by mouth 1 (one) time each day in the morning 3 Active Melatonin 10 MG capsule TAKE 1 CAPSULE BY MOUTH EVERYDAY AT BEDTIME NOT COVERED 3 Active Dulera 200-5 MCG/ACT inhaler 3 Active pantoprazole (PROTONIX) 40 MG EC tablet TAKE 1 TABLET (40 MG) BY MOUTH IN THE MORNING DO NOT CRUSH, CHEW, OR SPLIT 3 Active traMADol (ULTRAM) 50 MG tablet TAKE 1 TABLET (50 MG) BY MOUTH EVERY 6 (SIX) HOURS IF NEEDED FOR SEVERE PAIN FOR UP TO 5 DAYS. 3 Active amLODIPine (NORVASC) 10 MG tablet TAKE 1 TABLET BY MOUTH 1 TIME EACH DAY. 90 tablet 3 4 Active DULoxetine (CYMBALTA) [address] capsule Take 60 mg by mouth in the morning and 60 mg in the evening. 4 Active lidocaine (LIDODERM) 5 % patch Apply 1 patch topically 1 (one) time each day 4 Active Wegovy 1 MG/0.5ML solution auto-injector INJECT 1 MG SUBCUTANEOUSLY ONCE A WEEK 4 Active Active Problems Problem Noted Date Diagnosed Date Moderate major depression, single episode 202207/28/2023 Overview (07/28/2023): Last Assessment & Plan: Mood improving, followed by therapist 2 times a month, on cymbalta, no reported side effects, continue same treatment, follow up in 2 months in office Chronic low back pain 12/15/2022 07/28/2023 Overview (07/28/2023): Last Assessment & Plan: Followed by neurosurgery, will provide 5 days of tramadol for acute pain, told to rest/apply ice/avoid heavy lifting. Chronic kidney disease stage 3 due to hypertensi on 12/27/2018 07/27/2023 Benign essential hypertension 12/27/2018 Overview (07/28/2023): Last Assessment & Plan: Patient has not been monitoring his blood pressure, reinforced importance of daily monitoring, keeping a bp log target <140/90, continue lisinopril. Obstructive sleep apnea syndrome 10/14/2013 07/27/2023 Overview (07/28/2023): CPAP12 Morbid obesity 05/11/2012 07/27/2023 Overview (07/28/2023): Last Assessment & Plan: Followed, has a appointment on march for obesity follow up Encounters Date Type Department Care Team Description 04/06/2025 Orders Only [facility] [address] [phone] Cullen Reid MD Chronic kidney disease stage 3 due to hypertension (HCC) from Last 3 Months Social History Tobacco Use Types Packs/Day Years Used Date Smoking Tobacco: Every Day Cigarettes Smokeless Tobacco: Never Tobacco Cessation:Counseling Given: No Alcohol Use Standard Drinks/Week Comments Yes 0 (1 standard drink = 0.6 oz pur e alcohol) Sex and Gender Information Value Date Recorded Sex Assigned at Not on file Legal Sex Male 10:39 AM EST Gender Identity Not on file Sexual Orientation Not on file Last Filed Vital Signs Vital Sign Reading Time Taken Comments Blood Pressure 140/70 10/07/2024 10:11 AM EST Pulse 81 10/07/2024 10:11 AM EST Temperature - - Respiratory Rate - - Oxygen Saturation 98% 10/07/2024 10:11 AM EST Inhaled Oxygen Concentration - - Weight 183 kg (403 lb 6.4 oz) 10/07/2024 10:11 A M EST Height - - Body Mass Index - - Plan of Treatment Upcoming Encounters Date Type Department Care Team (Late st Contact Info) Description 04/18/2025 2:00 PM EDT Office Visit [facility] [address] [phone] Cullen Reid MD [address] [phone] Health Maintenance Due Date Last Done Comments Hepatitis B Vaccine (1 of 3 - 19+ 3-dose series) 05/28 Pneumococcal Vaccine: Peds ( 0 to 5 Years) and At-Risk Patients (6 to 49 Years) (1 of 2 - PCV) 2003 Influenza Vaccine (#1) 2025 Procedures Procedure Name Priority Date/Time Associated Diagnosis Comments URINALYSIS RFX MICROSCOPIC Routine 03/30/2025 11:24 AM EDT URINE ALBUMIN / CREATININE RATIO Routine 03/30/2025 11:24 AM EDT Chronic kidney disease stage 3 due to hypertension (HCC) CYSTATIN C, SERUM Routine 03/30/2025 11: 13 AM EDT CBC WITH AUTO DIFFERENTIAL Routine 03/30/2025 11:13 AM EDT PHOSPHATE ( PHOSPHORUS) Routine 03/30/2025 11:13 AM EDT Chronic kidney disease stage 3 due to hypertension (HCC) MAGNESIUM Routine 03/30/2025 11:13 AM EDT Chronic kidney disease stage 3 due to hypertension (HCC) PTH, INTACT Routine 03/30/2025 11:13 AM EDT Chronic kidney disease stage 3 due to hypertension (HCC) VITAMIN D 25 HYDROXY Routine 03/30/2025 11:13 AM EDT Chronic kidney disease stage 3 due to hypertension (HCC) HEMOGLOBIN A1C Routine 03/30/2025 11:13 AM EDT Chronic kidney disease stage 3 due to hypertension (HCC) IRON PANEL (FE, TIBC, TSAT) Routine 03/30/2025 11:13 AM EDT Chronic kidney disease stage 3 due to hypertension (HCC) FERRITIN Routine 03/30/2025 11:13 AM EDT Chronic kidney disease stage 3 due to hypertension (HCC) URIC ACID Routine 03/30/2025 11:13 AM EDT Chronic kidney disease stage 3 due to hypertension (HCC) from Last 3 Months Results * (ABNORMAL) Urine Albumin / Creatinine Ratio (03/30/2025 11:24 AM EDT) Creatinine, Urine 372.0 mg/dL [facility] Microalbumin Urine Random 47.8(H) 0.0 - 29.0 mg/L [facility] Microalbumin/Cre atinine Ratio 13 <30 mg/g creat [facility] Urine specimen (specimen) Urine specimen obtained by clean catch procedure / Unknown 03/30/2025 11:24 AM EDT 03/30/2025 12:30 PM EDT us Cullen Reid MD LAB URINE ORDERABLES Final Result Performing Organization Address City/[facility]/ZIP Co de Phone Number SERGIO [facility] [address] [place] [address] * (ABNORMAL) Urinalysis Reflex Microscopic (03/30/2025 11:24 AM EDT) [facility] Specific [place] 1.022 1.003 - 1.030 [facility] pH Urine 5.5 5.0 - 8.0 pH [facility] LEUKOCYTES, URINE Negative Negative [facility] Nitrite, Urine Negative Negative [facility] Protein, Urine Trace <=Trace mg/dL [facility] Glucose Urine Negative Negative mg/dL [facility] Ketones, Urine 15(A) Negative mg/dL [facility] Urobilinogen Urine 1.0 0.2 - 1.0 mg/dL [facility] Bilirubin Urine Negative Negative [facility] Blood Urine Negative Negative [facility] 03/30/2025 11:2 4 AM EDT 03/30/2025 12:31 PM EDT Cullen Reid MD LAB URINE ORDERABLES Final Result [facility] [address] [place] [address] * (ABNORMAL) CYSTATIN C, SERUM (03/30/2025 11:13 AM EDT) [facility] Cystatin C 2.8(H) 0.5 - 1.2 mg/L [facility] Comment: Test performed at [facility], [address] , [place] [address] Marilee Forrest MD, PhD - Tie Bucker 03/30/2025 11:1 3 AM EDT 03/30/2025 1:05 PM EDT Cullen Reid MD LAB HISTORICA [id number] RESULTS Final Result Performing Organization Address City/[facility]/ZIP Co de Phone Number [facility] [address] [place] [address] * (ABNORMAL) CBC auto differential (03/30/2025 11:13 AM EDT) [facility] WBC 9.3 4.8 - 10.8 K/[facility] RBC 4.60 4.50 - 5.50 M/[facility] Hgb 12.8(L) 13.5 - 17.5 g/dL [facility] Hematocrit 41.3(L) 42.0 - 54.0 % [facility] MCV 90.8 79.0 - 98.0 FL [facility] MCH 28.1 27.0 - 32.0 pcg [facility] MCHC 31.0(L) 32.0 - 37.0 g/dL [facility] RDW 16.0(H) 11.0 - 15.0 % [facility] Platelets 165 130 - 400 K/[facility] MPV 13.3(H) 7.0 - 11.0 FL [facility] nRBC Count 0.0 <1.0 % [facility] NRBC Absolute 0.00 <0.10 K/[facility] Bands Relative 68.0 % [facility] Lymphocyte Realative Percent 21.6 % [facility] Monocyte Relative Percent 8.8 % [facility] Eosinophil Relative Percent 0.8 % [facility] Basophils Relative Diff 0.5 % [facility] Immature Granulocytes 0.3 % [facility] Neutrophils Absolute 6.31 1.50 - 7.00 K/[facility] Lymphocytes Absolute 2.01 1.00 - 5.00 K/[facility] Monocytes Absolute 0.82 0.20 - 1.00 K/[facility] Eosinophil Absolute 0.07 0.00 - 0.50 K/[facility] Basophil ABS 0.05 0.00 - 0.20 [facility] Immature Grans (Absolute) 0.03 0.00 - 0.03 K/[facility] 03/30/2025 11:1 3 AM EDT 03/30/2025 12:32 PM EDT us Cullen Reid MD LAB BLOOD ORDERABLES Final Result SERG[facility] [address] [place] [address] * (ABNORMAL) Iron Panel (Fe, TIBC, TSAT) (03/30/2025 11:13 AM EDT) Iron 96 50 - 160 mcg/dL [facility] TIBC 228(L) 250 - 450 mcg/dL [facility] Iron Saturation (TSat) 42 20 - 50 % [facility] Blood specimen (specimen) Venous blood / Unknown 03/30/2025 11:13 AM EDT 03/30/2025 12:30 PM EDT us Cullen Reid MD LAB BLOOD ORDERABLES Final Result Performing Organization Address City/[facility]/ZIP Co de Phone Number [facility] [address] [place] [address] * Vitamin D 25 Hydroxy (03/30/2025 11:13 AM EDT) Vitamin D, 25-OH, Total 31.7 30.0 - 80.0 ng/mL [facility] Blood specimen (specimen) Venous blood / Unknown 03/30/2025 11:13 AM EDT 03/30/2025 12:30 PM EDT us Cullen Reid MD LAB BLOOD ORDERABLES Final Result Performing Organization Address [facility] Co de Phone Number [facility] [address] [place] [address] * Uric Acid (03/30/2025 11:13 AM EDT) Uric Acid 8.4 3.7 - 9.2 mg/dL [facility] Blood specimen (specimen) Venous blood / Unknown 03/30/2025 11:13 AM EDT 03/30/2025 12:30 PM EDT us Cullen Reid MD LAB BLOOD ORDERABLES Final Result Performing Organization Address City/[facility] Co de Phone Number [facility] [address] [place] [address] * Phosphorus (03/30/2025 11:13 AM EDT) Phosphorus 2.9 2.5 - 4.5 mg/dL [facility] Blood specimen (specimen) Venous blood / Unknown 03/30/2025 11:13 AM EDT 03/30/2025 12:30 PM EDT us Cullen Reid MD LAB BLOOD ORDERABLES Final Result Performing Organization Address City/[facility]/ZIP Co de Phone Number [facility] [address] [place] [address] * (ABNORMAL) PTH, Intact (03/30/2025 11:13 AM EDT) PTH 202.9(H) 18.5 - 88.0 pcg/mL [facility] Blood specimen (specimen) Venous blood / Unknown 03/30/2025 11:13 AM EDT 03/30/2025 12:30 PM EDT us Cullen Reid MD LAB BLOOD ORDERABLES Final Result Performing Organization Address [facility] Co de Phone Number [facility] [address] [place] [address] * Magnesium (03/30/2025 11:13 AM EDT) Magnesium 2.3 1.9 - 2.6 mg/dL [facility] Blood specimen (specimen) Venous blood / Unknown 03/30/2025 11:13 AM EDT 03/30/2025 12:30 PM EDT us Cullen Reid MD LAB BLOOD ORDERABLES Final Result Performing Organization Address [facility] Co de Phone Number [facility] [address] [place] [address] * Hemoglobin A1c (03/30/2025 11:13 AM EDT) Hemoglobin A1C 5.0 <6.5 % [facility] Estimated Average Glucose 97 mg/dL [facility] Blood specimen (specimen) Venous blood / Unknown 03/30/2025 11:13 AM EDT 03/30/2025 12:32 PM EDT Cullen Reid MD LAB BLOOD ORDERABLES Final Result [facility] [address] [place] [address] * Ferritin (03/30/2025 11:13 AM EDT) Pathologist [facility] Ferritin 167 26 - 388 ng/mL [facility] Blood specimen (specimen) Venous blood / Unknown 03/30/2025 11:13 AM EDT 03/30/2025 12:30 PM EDT Cullen Reid MD LAB BLOOD ORDERABLES Final Result [facility] [address] [place] [address] from Last 3 Months Insurance [facility] ([id number]) ANTONI BUNN [phone] [facility] ([id number]) ANTONI BUNN [phone] Care Teams Bar Helper Relationship Specialty Start Date End Date Chris Walter [address] [place] [phone] PCP - General Internal Medicine 09/10/21
--- OUTSIDE RECORDS SUMMARY | 2025-04-18 11:45 | XMS_ITS | Encounter Summary ---
Author Organization [employer] Address [address] [facility] 7t [place] [address] Care Team Providers Care Optometric Technologist Name Role Phone Chris Ackerman MD Primary Care Prov ider Reason for Visit * Reason Onset Date Comments Med Refill 03/14/2025 Encounter Details Date Type Department Care Team ([facility] st Contact Info) Description 03/14/2025 Telephone [facility]C MED & PEDS [address] [place] [address] Chris Ackerman MD [address] [place] [address] Med Refill Social History Tobacco Use Types Packs/Day Years [...] housing situation today? I have shelli sung 01/23/[address] you li ve. Do you have problems with any of the following? Pests such as bugs, ants, or mice 01/23/2025 Food Insecurity Answer Date Recorded Within the past 12 months, y ou worried that your food would run out before you got money to buy more: Never True 01/23/2025 Within the past 12 months,th e food you bought just didn't last and you didn't have enough money to get more: Never True 09/2024 Transportation Answer Date Recorded In the past 12 months, has l ack of transportation kept you from medical appts, meetings, work or from getting things needed for daily living? No 01/23/2025 Utilities Answer Date Recorded In the past 12 months, has t he electric, gas, oil or water company threatened to shut off services in your home? Yes 01/23/2025 Depression Answer Date Recorded Patient Health Questionnaire-2 Score 2 11/04/2023 Internet Access Answer Date Recorded Internet Access Q1 Yes 01/23/2025 Internet Access Q2 Not on file 01/23/2025 Sex and Gender Information Value Date Recorded Sex Assigned at Male 06/23/2022 10:19 AM EDT Legal Sex Male 10:19 AM EDT Gender Identity Male 06/23/2022 10:19 AM EDT Sexual Orientation Straight 06/23/2022 10 :19 AM EDT documented as of this encounter Miscellaneous Notes * Telephone Encounter - Kaley Bradshaw LPN - 03/14/2025 4:11 PM EDT Medication isn't prescribed by PCP. * Telephone Encounter - Jaden Harper - 03/14/2025 4:07 PM EDT TC from pt requesting medication refill. Medications needing refill : hydrALAZINE (Apresoline) 25 MG tablet To be sent to: [facility]/pharmacy [id number] [address] [facility] documented in this encounter Plan of Treatment Upcoming Encounters Date Type Department Care Team (Late st Contact Info) Description 09/25/2025 3:00 PM EST Office Visit [facility] AD[facility]AL [address] [place] [address] Johnie Kearns documented as of this encounter Visit Diagnoses Not on filedocumented in this encounter Additional Health Concerns Assessment Noted Time PHQ-9 Depression Total Score: 2 11/04/19 24 9:37 AM EDT documented as of this encounter Care Teams Optometric Technologist Relationship Specialty Start Date End Date Chris Ackerman MD [address] [place] [phone] PCP - General Internal Medicine 05/24/20 Haleigh Vanegas Boiler Room OperatorMachine Hamper Maker 12/28/23 [employer] 01/14/25 documented as of this encounter
--- OUTSIDE RECORDS SUMMARY | 2025-04-18 11:45 | XMS_ITS | Encounter Summary ---
Author Organization [employer] Address [address] [facility] 7t [place] [address] Care Team Providers Care Staff Registered Nurse Name Role Phone Chris Ackerman MD Primary Care Prov ider Encounter Details Date Type Department Care Team (Late st Contact Info) Description 01/20/2025 Orders Only [facility] [address] [place] [address] ProviderGlenroy MD Social History Tobacco Use Types Packs/Day Years [...] Description 09/25/2025 3:00 PM EST Office Visit [facility] AD[facility] [address] [place] [address] Johnie Kearns documented as of this encounter Procedures Procedure Name Priority Date/Time Associated Diagnosis Comments IR PICC LINE VASCULAR INSERTION Routine 01/20/2025 4:12 PM EDT documented in this encounter Results * IR PICC Line Vascular Insertion (01/20/2025 4:12 PM EDT) Anatomical Region Laterality Modality X-Ray Angiograph y us Historical Provider MD SQUIRSE IR PROCEDURES Final R esult documented in this encounter Visit Diagnoses Not on filedocumented in this encounter Additional Health Concerns Assessment Noted Time PHQ-9 Depression Total Score: 2 11/04/19 24 9:37 AM EDT documented as of this encounter Care Teams Staff Registered Nurse Relationship Specialty Start Date End Date Chris Ackerman MD [address] [place] [address] PCP - General Internal Medicine 05/24/20 Haleigh Vanegas Form Setter Steel Pan FormsBrand Leader 12/28/23 [employer] 01/14/25 documented as of this encounter
--- OUTSIDE RECORDS SUMMARY | 2025-04-18 11:45 | XMS_ITS | Encounter Summary ---
Author Organization [employer] Address [address] [facility] [address] [place] [address] Care Team Providers Care Machinist First Class Name Role Phone Chris Ackerman MD Primary Care Prov ider Encounter Details Date Type Department Care Team ([facility] st Contact Info) Description 08/26/2023 Orders Only [facility] CH[facility] MED & PEDS [address] [place], [place] [phone] Jessica Velazquez MD [address] [place] [address] Social History Tobacco Use Types Packs/Day Years [...] Description 09/25/2025 3:00 PM EST Office Visit [facility] AD[facility] [address] [place] [address] Johnie Kearns documented as of this encounter Visit Diagnoses Not on filedocumented in this encounter Additional Health Concerns Assessment Noted Time PHQ-9 Depression Total Score: 10 023 9:25 AM EDT documented as of this encounter Care Teams Machinist First Class Relationship Specialty Start Date End Date Chris Ackerman MD [address] [place] [address] PCP - General Internal Medicine 05/24/20 Haleigh Vanegas Drugless PhysicianManager Package 12/28/23 [employer] 01/14/25 documented as of this encounter
--- OUTSIDE RECORDS SUMMARY | 2025-04-18 11:45 | XMS_ITS | Clinical Summary ---
Author Organization [employer] Address [address] [facility] [address] [place] [address] Care Team Providers Care Real Estate Utilization Officer Name Role Phone Chris Ackerman MD Primary Care Prov ider Allergies No known active allergies Medications * This document contains information received from the source organization and may not represent a complete record from that organization. Diclofenac Sodium 1 % gel apply 2 gram by topical route 4 times every day to the affected area(s) 02/16/20 21 Active hydrOXYzine pamoate (Vistaril) 25 MG capsuleIndicati ons:Anxiety TAKE 1 CAPSULE BY ORAL ROUTE 2 TIMES EVERY DAY NEEDED STRENGTH: 25 MG 60 capsule 1 04/22/20 23 Active Additional Information Patient not taking.Reported on 01/18/2025 Blood Pressure kit 1 kit in the morning. 1 kit 07/23/20 23 Active mometasone-form oterol (Dulera) 200-5 MCG/ACT inhaler INHALE 1 PUFF IN THE MORNING AND AT BEDTIME. RINSE MOUTH WITH WATER AFTER USE TO REDUCE AFTERTASTE AND INCIDENCE OF CANDIDIASIS. DO NOT SWALLOW. 13 g 1 08/19/20 23 Active DULoxetine (Cymbalta) [address] capsule Take 60 mg by mouth 2 times daily. 03/02/20 24 Active loratadine (Claritin) 10 MG tablet TAKE 1 TABLET BY MOUTH EVERY DAY IN THE MORNING 90 tablet 1 04/22/20 24 Active lidocaine (Xylocaine) 5 % ointment Apply topically if needed for mild pain. 240 g 1 08/22/20 24 2024 Active acetaminophen (Tylenol 8 Hour) 650 MG ER tablet PLEASE SEE ATTACHED FOR DETAILED DIRECTIONS 09/19/19 25 Active D3 Super Strength 50 MCG (1999 UT) capsuleIndicati ons:Vitamin D deficiency, unspecified TAKE 1 CAPSULE (50 MCG) BY MOUTH IN THE MORNING. 90 capsule 3 01/04/20 25 Active gabapentin (Neurontin) 600 MG tablet Take 1 tablet by mouth 3 times daily. 01/05/20 25 Active hydrALAZINE (Apresoline) 25 MG tablet Take 2 tablets by mouth 2 times daily. 01/05/20 25 Active Zepbound 5 MG/0.5ML solution auto-injector Inject 5 mg under the skin every 7 (seven) days. 12/28/19 25 Active melatonin 5 MG tablet Take 1-2 tablets by mouth at bedtime. 10/10/19 25 Active losartan (Cozaar) 25 MG tabletIndicatio ns:Benign essential hypertension Take 1 tablet (25 mg) by mouth Once per day. 90 tablet 1 02/21/20 25 Active amLODIPine (Norvasc) 5 MG tabletIndicatio ns:Benign essential hypertension Take 1 tablet (5 mg) by mouth Once per day. 90 tablet 1 02/21/20 25 Active fluticasone (Flonase) 50 MCG/ACT nasal spray INSTILL 2 SPRAYS INTO BOTH NOSTRILS ONCE DAILY, SHAKE WELL BEFORE USE 48 mL 1 02/29/20 25 Active pantoprazole (ProtoNix) 40 MG EC tabletIndicatio ns:Gastroesopha geal reflux disease without esophagitis TAKE 1 TABLET (40 MG) BY MOUTH IN THE MORNING DO NOT CRUSH, CHEW, OR SPLIT 90 tablet 1 03/17/20 25 Active metoprolol tartrate (Lopressor) 50 MG tabletIndicatio ns:Essential (primary) hypertension TAKE 1 TABLET BY MOUTH TWICE A DAY 180 tablet 1 03/17/20 25 Active lidocaine (Lidoderm) 5 % patchIndication s:Chronic bilateral low back pain with bilateral sciatica Apply 1 patch topically Once per day. Remove & discard patch within 12 hours or as directed by . 30 patch 1 03/30/20 25 Active traMADol (Ultram) 50 MG tabletIndicatio ns:Lumbago with sciatica, right side Take 1 tablet (50 mg) by mouth every 6 (six) hours if needed for severe pain for up to 7 days. 20 tablet 04/11/20 25 2024 Active allopurinol (Zyloprim) 100 MG tablet TAKE 1 TABLET (100 MG) BY MOUTH ONCE PER DAY. 90 tablet 03/10/20 25 2024 traMADol (Ultram) 50 MG tabletIndicatio ns:Lumbago with sciatica, right side TAKE 1 TABLET (50 MG) BY MOUTH EVERY 6 (SIX) HOURS NEEDED FOR SEVERE PAIN FOR UP TO 7 DAYS. 20 tablet 03/13/20 25 2024 Discontinued traMADol (Ultram) 50 MG tabletIndicatio ns:Lumbago with sciatica, right side TAKE 1 TABLET (50 MG) BY MOUTH EVERY 6 (SIX) HOURS NEEDED FOR SEVERE PAIN FOR UP TO 7 DAYS. 20 tablet 03/28/20 25 2024 Discontinued(R eorder (will not trigger notification to Pharmacy)) lidocaine-prilo mati (Emla) 2.5-2.5 % cream Apply topically 1 (one) time for 1 dose. 180 g 3 04/11/20 25 2024 Active Problems Problem Noted Date Diagnosed Date Acute idiopathic gout of left knee 01/31/2025 Assessment & Plan (03/30/2025 1:01 PM EDT): Pain improving, followed by rheumatology, no erythema or swelling Assessment & Plan (01/31/2025 1:49 PM EDT): On Allopurinol, will refer to rheumatology, lifestyle modification Left foot pain 01/31/2025 Assessment & Plan (01/31/2025 1:52 PM EDT): Will refer to podiatry for eval for steroid injection Physical exam, annual 11/04/2023 No vaccination-pt refuse 11/04/2023 Moderate major depression, single episode 2022 Overview (03/16/2024): Last Assessment & Plan: Mood improving, followed by therapist 2 times a month, on cymbalta, no reported side effects, continue same treatment, follow up in 2 months in office Assessment & Plan (03/19/2023 9:55 AM EDT): Mood improving, followed by therapist 2 times a month, on cymbalta, no reported side effects, continue same treatment, follow up in 2 months in office Assessment & Plan (01/22/2023 4:27 PM EDT): Patient followed by a therapist, no suicidal/homicidal ideas, will start on cymbalta, follow up in [facility] Chronic low back pain 12/15/2022 Overview (03/16/2024): Last Assessment & Plan: Followed by neurosurgery, will provide 5 days of tramadol for acute pain, told to rest/apply ice/avoid heavy lifting. Assessment & Plan (04/14/2024 12:24 PM EDT): Followed by specialist, will provide muscle relaxant, er precautions reviewed Assessment & Plan (05/19/2023 2:18 PM EDT): Followed by neurosurgery, will provide 5 days of tramadol for acute pain, told to rest/apply ice/avoid heavy lifting. Assessment & Plan (04/07/2023 9:59 PM EDT): Patient denied recent traumatic event, denied urinary/stool incontinence, lower extremity weakness. Will provide prednisone for 3 days and tramadol for 5 days, told to rest, apply cold/warm pads.Follow up with ortho as scheduled Assessment & Plan (03/19/2023 9:56 AM EDT): Followed by ortho, has a appointment on march, will follow reccomendations Assessment & Plan (01/22/2023 4:29 PM EDT): Told to reschedule ortho follow up, he was supposed to get an MRI which he has not done, continue with tylenol/ibuprofen PRN/gabapentin, rest/ice. Assessment & Plan (12/15/2022 6:03 PM EDT): Chronic low back pain, patient followed by ortho, was referred to PT but pain persist, told to follow up again with specialist for further reccomendations, will increase gabapentin to 300mg tid, will renew patches and due to his renal function will provide tramadol #15 for pain >7/10. Benign essential hypertension 12/27/2018 Assessment & Plan (03/30/2025 1:00 PM EDT): Controlled, continue low sodium diet and exercise as tolerated, keep bp log, arget <140/90 Assessment & Plan (01/31/2025 1:45 PM EDT): Controlled, continue low sodium diet, exercise as tolerated, keep bp log, target <140/90 Assessment & Plan (04/14/2024 12:24 PM EDT): Controlled, continue same therapy, keep low sodium diet and exercise as tolerated, keep bp log Assessment & Plan (11/04/2023 1:49 PM EDT): On lisinopril, no changes will be made, continue low sodium diet and exercise as tolerated Assessment & Plan (10/06/2023 10:45 PM EST): Controlled, no changes will be made, reinforced low sodium diet and exercise as tolerated Assessment & Plan (05/19/2023 2:17 PM EDT): Patient has not been monitoring his blood pressure, reinforced importance of daily monitoring, keeping a bp log target <140/90, continue lisinopril. Hypertensive kidney disease, stage III 9 Assessment & Plan (11/04/2023 1:47 PM EDT): Followed by nephrology, avoid NSAIDS, stay well hydrated and keep bp <140/90 Obstructive sleep apnea syndrome 10/14/2013 Overview (03/16/2024): CPAP12 CPAP12 Assessment & Plan (01/31/2025 1:45 PM EDT): Will refer to sleep medicine Morbid obesity 05/11/2012 Assessment & Plan (11/04/2023 1:48 PM EDT): Followed at bariatric surgery clinic, he has lost 20 lbs, on victoza, Assessment & Plan (03/19/2023 9:56 AM EDT): Followed, has a appointment on march for obesity follow up Encounters * This document contains information received from the source organization and may not represent a complete record from that organization. Date Type Department Care Team Description 04/11/2025 1:30 PM EDT Telemedicine [facility] [address] [place] [address] Chris Ackerman MD Hypertensive kidney disease with stage 3 chronic kidney disease, unspecified whether stage 3a or 3b CKD (CMS/HCC) (Primary Dx); Lumbago with sciatica, right side 04/11/2025 Travel 04/10/2025 Telephone [facility] [address] [place] [address] Chris Ackerman MD chart prep 03/31/2025 Telephone [facility] [address] [place] [address] Chris Ackerman MD Appointment Request 03/30/2025 10:15 AM EDT Office Visit [facility] [address] [place] [address] Chris Ackerman MD Chronic bilateral low back pain with bilateral sciatica (Primary Dx); Benign essential hypertension; Acute idiopathic gout of left knee 03/30/2025 Travel 03/27/2025 Refill [facility] [address] [place] [address] Jessica Velazquez MD Lumbago with sciatica, right side 03/23/2025 10:00 AM EDT Office Visit [facility] [address] [place] [address] Johnie Kearns Dental calculus (Primary Dx) 03/17/2025 Refill [facility] [address] [place] [address] Chris Ackerman MD Gastroesophageal reflux disease without esophagitis; Essential (primary) hypertension 03/14/2025 Telephone [facility] [address] [place] [address] Chris Ackerman MD Med Refill 03/12/2025 Refill [facility] [address] [place] [address] Chris Ackerman MD Lumbago with sciatica, right side 03/10/2025 Refill [facility] [address] [place] [address] Chris Ackerman MD 03/06/2025 Orders Only [facility] [address] [place] [address] Chris Ackerman MD 02/25/2025 Refill [facility] [address] [place] [address] Ghada Horton FNP 02/10/2025 Refill [facility] [address] [place] [address] Chris Ackerman MD 02/10/2025 Refill [facility] [address] [place] [address] Chris Ackerman MD Benign essential hypertension 02/09/2025 Refill [facility] [address] [place] [address] Chris Ackerman MD Lumbago with sciatica, right side 01/31/2025 1:00 PM EDT Office Visit [facility] [address] [place] [address] Chris Ackerman MD Blurry vision (Primary Dx); Dietary counseling; Exercise counseling; Current moderate episode of major depressive disorder without prior episode ([facility]/HCC); Hypertensive kidney disease with stage 3 chronic kidney disease, unspecified whether stage 3a or 3b CKD ([facility]); Benign essential hypertension; Obstructive sleep apnea syndrome; Acute idiopathic gout of left knee; Left foot pain 01/31/2025 Travel 01/23/2025 Patient Outreach [facility] [address] [place] [phone] Chris Ackerman MD Care Coordination (CH[facility] outreach SDOH pest control - LVM ) 01/23/2025 Patient Outreach [facility] [address] [place] [address] Chris Ackerman MD Pre-visit Planning (SDOH screening positive and Tobacco screening positive) 01/20/2025 Orders Only [facility] [address] [place] [phone] Glenroy Newman MD 01/20/[address] [address] Alessandro Kearns MD No Show 01/18/2025 Orders Only [facility] [address] [place] [phone] Glenroy Newman MD 01/18/2025 Refill [facility] [address] [place], [place] [phone] Alessandro Kearns MD Lumbago with sciatica, right side 01/17/2025 Telephone [facility] [address] [place], [place] [phone] Chris Ackermna MD Nurse Triage from Last 3 Months Immunizations Immunization Administration Dates Next Due Tdap 07/07/2011 Social History Tobacco Use Types Packs/Day Years Used Date Smoking Tobacco: Every Day Cigarettes Last attempted to quit: 2022 Smokeless Tobacco: Never Tobacco Cessation:Ready to Q uit: Not Asked; Counseling Given: Not Answered Alcohol Use Standard Drinks/Week Comments Defer 0 (1 standard drink = 0.6 oz pur e alcohol) Depression Answer Date Recorded Patient Health Questionnaire-9 Score 2 03/30/2025 Patient Health Questionnaire-9 Score 2 03/30/2025 Last PHQ-9: Questionnaire Data Not on file 0 03/30/2025 Housing Stability Answer Date Recorded What is [...] Date Recorded Patient Health Questionnaire-2 Score 2 03/30/2025 Internet Access Answer Date Recorded Internet Access Q1 Yes 01/23/2025 Internet Access Q2 Not on file 01/23/2025 Sex and Gender Information Value Date Recorded Sex Assigned at Male 06/23/2022 10:19 AM EDT Legal Sex Male 10:19 AM EDT Gender Identity Male 06/23/2022 10:19 AM EDT Sexual Orientation Straight 06/23/2022 10 :19 AM EDT Last Filed Vital Signs Vital Sign Reading Time Taken Comments Blood Pressure 108/70 03/30/2025 10:18 AM EDT Pulse 76 03/30/2025 10:18 AM EDT Temperature 36.3 C (97.4 F) 03/30/2025 10:18 AM EDT Respiratory Rate 20 03/30/2025 10:18 AM EDT Oxygen Saturation 100% 03/14/2024 3:48 PM EDT Inhaled Oxygen Concentration - - Weight 186 kg (409 lb) 03/30/2025 10:18 AM EDT Height 175.3 cm (5' 9 ) 03/30/2025 10:18 AM EDT Body Mass Index 60.4 03/30/2025 10:18 AM EDT Plan of Treatment Upcoming Encounters Date Type Department Care Team (Late st Contact Info) Description 09/25/2025 3:00 PM EST Office Visit [facility] [address] [place] [address] Johnie Kearns Health Maintenance Due Date Last Done Comments Disability Screening 1984 Family Planning (PISQ) 1999 HPV Vaccines (1 - Male 3-dose series) 1999 Hepatitis B Vaccines (1 of 3 - 19+ 3-dose series) 2003 Pneumococcal Vaccine: Pediatrics (0 to 5 Years) and At-Risk Patients (6 to 49) Years (1 of 2 - PCV) 2003 DTaP/Tdap/Td Vaccines (2 - Td or Tdap) 07/07/2021 07/07/2011 COVID-19 Vaccine ( - season) 2024 Influenza Vaccine (#1) 2025 Dental Oral Exam 09/24/2025 03/23/2025, , 03/22/2024, Additional history exists Dental Prophylaxis 09/24/2025 03/23/2025, 0 09/23/2024, 03/22/2024, Additional history exists SDOH Screening 01/23/2026 01/23/2025 Tobacco Screening 03/23/2026 03/23/2025 Dental X-Ray: Bitewings 03/24/2026 03/23/20 25, 03/22/2024, 01/22/2023, Additional history exists Depression Screening 03/30/2026 03/30/2025, 03/30/20 Alcohol/Substance Use Screening 04/11/2026 04/11/2025 Dental X-Ray: Full Mouth 03/23/2027 03/22/2024 Lipid Panel 11/03/2028 11/04/2023, 08/0 09/2022, 01/08/2022, Additional history exists Zoster Vaccines (1 of 2) 2034 RSV Patients and Patients Aged 60 years or older (1 - 1-dose 75+ series) 2059 HIV Screening Completed 07/06/2020 Hepatitis C Screening Completed 11/04/2023 HIB Vaccines Aged Out No longer eligi ble based on patient's age to complete this topic Hepatitis A Vaccines Aged Out No long er eligible based on patient's age to complete this topic IPV Vaccines Aged Out No longer eligi ble based on patient's age to complete this topic Meningococcal B Vaccine Aged Out No l onger eligible based on patient's age to complete this topic Meningococcal Vaccine Aged Out No bryce marya eligible based on patient's age to complete this topic RSV under 20 months Aged Out No longe r eligible based on patient's age to complete this topic Rotavirus Vaccines Aged Out No longer eligible based on patient's age to complete this topic Procedures Procedure Name Priority Date/Time Associated Diagnosis Comments AMB REFERRAL TO PODIATRY Routine 03/27/2025 Left foot pain COMPREHENSIVE PERIODONTAL EVALUATION - NEW OR ESTABLISHED PATIENT Routine 03/23/2025 10:00 AM EDT PERIODIC ORAL EVALUATION - ESTABLISHED PATIENT Routine 03/23/2025 10:00 AM EDT INTRAORAL - PERIAPICAL FIRST RADIOGRAPHIC IMAGE Routine 03/23/2025 10:00 AM EDT BITEWINGS - 4 RADIOGRAPHIC IMAGES Routine 03/23/2025 10:00 AM EDT CASE PRESENTATION, DETAILED AND EXTENSIVE TREATMENT PLANNING Routine 03/23/2025 10:00 AM EDT TOPICAL APPLICATION OF FLUORIDE VARNISH Routine 03/23/2025 10:00 AM EDT ORAL HYGIENE INSTRUCTIONS Routine 03/23/2025 10:00 AM EDT PROPHYLAXIS - ADULT Routine 03/23/2025 1 0:00 AM EDT INTRAORAL - PERIAPICAL EACH ADDITIONAL RADIOGRAPHIC IMAGE Routine 03/23/2025 10:00 AM EDT AMB REFERRAL TO RHEUMATOLOGY Routine 03/14/2025 Acute idiopathic gout of left knee IR PICC LINE VASCULAR INSERTION Routine 01/20/2025 4:12 PM EDT XR KNEE 4 OR MORE VIEWS LEFT Routine 01/17/2025 11:19 AM EDT INTRAORAL - COMPLETE SERIES OF RADIOGRAPHIC IMAGES Routine 03/22/2024 1:00 PM EDT HEPATITIS C AB W/REFL TO HCV RNA, QN, PCR Routine 11/04/2023 10:34 AM EDT Morbid obesity (CMS/HCC) LIPID PANEL, STANDARD Routine 11/04/2023 10:34 AM EDT Morbid obesity (CMS/HCC) HIV 1/2 ANTIGEN/ANTIBODY, FOURTH GENERATION W/RFL Routine 07/06/2020 3:35 PM EST from Last 3 Months or Most Recently Relevant to Health Maintenance Results * Referral to Podiatry (03/27/2025) Result [facility] Chris Perry MD OUTPATIENT REFERRA L ORDERABLES Final Result * Referral to Rheumatology (03/14/2025) Chris Perry MD OUTPATIENT REFERRA L ORDERABLES Final Result * IR PICC Line Vascular Insertion (01/20/2025 4:12 PM EDT) Anatomical Region Laterality Modality X-Ray Angiograph y Historical Provider IMG IR PROCEDURES Final R esult * XR KNEE 4 OR MORE VIEWS LEFT (01/17/2025 11:19 AM EDT) Anatomical Region Laterality Modality Radiographic Kiesha ging Historical Provider IMG XR PROCEDURES Final R esult * Hepatitis C Antibody with Reflex to HCV, RNA, Quantitative, Real-Time PCR (11/04/2023 10:34 AM EDT) Hepatitis C Antibody Nonreactive Nonreactive [facility] Comment:Antibodies to HCV no t detected; does not exclude early acuteHCV infection. Blood Venous blood specimen / Unknown 11/04/2023 10:34 AM EDT 11/04/2023 2:10 PM EDT Result [facility] Chris Perry MD LAB BLOOD ORDERABL ES Final Result [facility] [address] [place] [phone] * (ABNORMAL) Lipid Panel, Standard (11/04/2023 10:34 AM EDT) Triglycerides 121 <150 mg/dL [facility] Comment:Desirable Triglyceri de: less than 150 mg/dLBorderline High Triglyceride 150-199 mg/dLHigh Triglyceride: 200-499 mg/dLVery High Triglyceride: greater than or equal to 5OO mg/dL Cholesterol 132 <200 mg/dL [facility] Comment:Desirable Cholestero l: less than 200 mg/dLBorderline High Cholesterol: 200-239 mg/dLHigh Cholesterol: greater than 239 mg/dL LDL Cholesterol Calculated 78 <100 mg/dL [facility] Comment:Desirable LDL: less than 100 mg/dLNear Optimal/Above Optimal LDL: 110- 129 mg/dLBorderline High LDL: 130-159 mg/dLHigh LDL: 160-189 mg/dLVery High LDL: greater than or equal to 190 mg/dL HDL Cholesterol 30(L) >40 mg/dL [facility] Comment:Desirable HDL: great er than 40 mg/dL Note: This HDL assay may give artificially low results in patients with liver disease. Blood Venous blood specimen / Unknown 11/04/2023 10:34 AM EDT 11/04/2023 2:10 PM EDT Chris Perry MD LAB BLOOD ORDERABL ES Final Result [facility] [address] [place] [phone] * HIV 1/2 ANTIGEN/ANTIBODY,FOURTH GENERATION W/RFL (07/06/2020 3:35 PM EST) Pathologist [facility] HIV-1/2 ANTIGEN AND ANTIBODIES, 4TH GENERATION W/ REFLEX NON-REACT MARCIA NON-REACT MARCIA [facility] Comment: HIV-1 antigen and HIV-1/HIV-2 antibodies were not detected. There is no laboratory evidence of HIV infection. PLEASE NOTE: This information has been disclosed to you from records whose confidentiality may be protected by state law. If your state requires such protection, then the state law prohibits you from making any further disclosure of the information without the specific written consent of the person to whom it pertains, or as otherwise permitted by law. A general authorization for the release of medical or other information is NOT sufficient for this purpose. For additional information please refer to http://education.organgir.am.Help/Systems/faq/YCT707 (This link is being provided for informational/ educational purposes only.) The performance of this assay has not been clinically validated in patients less than 2 years old. 07/06/2020 3:35 PM EST us Chris Perry MD LAB BLOOD ORDERABL ES Final Result [facility] [address] from Last 3 Months or Most Recently Relevant to Health Maintenance Insurance [facility] STANDARD [facility] ONE CARE < 65 DENTAL-[facility] MEDICAID STAND ADULT [facility] Care Teams Real Estate Utilization Officer Relationship Specialty Start Date End Date Chris Ackerman MD [address] [place] [phone] PCP - General Internal Medicine 05/24/20 Haleigh Vanegas Agricultural Commodities InspectorFrit Mixer And Burner 12/28/23 [employer] 01/14/25
--- OUTSIDE RECORDS SUMMARY | 2025-04-18 11:45 | XMS_ITS | Encounter Summary ---
Author Organization [employer] Address [address] [place] [address] [address] [place] [address] Care Team Providers Care Lens Matcher Name Role Phone Chris Ackerman MD Primary Care Prov ider Encounter Details Date Type Department Care Team (Latest Contact Info) Description 12/20/2020 Abstract [facility] CONVERSIONS Dental, Provider, DDS Social History Tobacco Use Types Packs/Day Years Used Date Smoking Tobacco: Never Assessed Sex and Gender Information Value Date Recorded Sex Assigned at Male 06/23/2022 10:19 AM EDT Legal Sex Male 10:19 AM EDT Gender Identity Male 06/23/2022 10:19 AM EDT Sexual Orientation Straight 06/23/2022 10 :19 AM EDT documented as of this encounter Plan of Treatment Upcoming Encounters Date Type Department Care Team ( st Contact Info) Description 09/25/2025 3:00 PM EST Office Visit [facility] [address] [place] [address] Johnie Kearns documented as of this encounter Visit Diagnoses Not on filedocumented in this encounter Care Teams Lens Matcher Relationship Specialty Start Date End Date Chris Ackerman MD [address] [place] [address] PCP - General Internal Medicine 05/24/20 Haleigh Vanegas Rubber And PounderConstruction Foreman 12/28/23 [employer] 01/14/25 documented as of this encounter
--- OUTSIDE RECORDS SUMMARY | 2025-04-18 11:45 | XMS_ITS | Encounter Summary ---
Author Organization [employer] Address [address] [place] [address] Care Team Providers Care Hyperbaric Welder Diver Name Role Phone Chris Ackerman MD Primary Care Prov ider Encounter Details Date Type Department Care Team (Late st Contact Info) Description 01/18/2025 Orders Only [facility] [address] [place] [address] ProviderGlenroy MD Social History Tobacco Use Types [...] Description 09/25/2025 3:00 PM EST Office Visit [facility] [address] [place] [address] Johnie Kearns documented as of this encounter Procedures Procedure Name Priority Date/Time Associated Diagnosis Comments XR KNEE 4 OR MORE VIEWS LEFT Routine 01/17/2025 11:19 AM EDT documented in this encounter Results * XR KNEE 4 OR MORE VIEWS LEFT (01/17/2025 11:19 AM EDT) Anatomical Region Laterality Modality Radiographic Kiesha ging us Historical Provider MD SQUIRES XR PROCEDURES Final R esult documented in this encounter Visit Diagnoses Not on filedocumented in this encounter Additional Health Concerns Assessment Noted Time PHQ-9 Depression Total Score: 2 11/04/19 24 9:37 AM EDT documented as of this encounter Care Teams Hyperbaric Welder Diver Relationship Specialty Start Date End Date Chris Ackerman MD [address] [place] [address] PCP - General Internal Medicine 05/24/20 Haleigh Vanegas TongsmanMachine Cage Maker 12/28/23 [employer] 01/14/25 documented as of this encounter
--- OUTSIDE RECORDS SUMMARY | 2025-04-18 11:45 | XMS_ITS | Encounter Summary ---
Author Organization [employer] Address [address] [place] [address] [address] [place] [address] Care Team Providers Care Director Of Primary Name Role Phone Chris Ackerman MD Primary Care Prov ider Reason for Visit * Reason Comments Med Refill Encounter Details Date Type Department Care Team (Late st Contact Info) Description 04/24/2023 Refill [facility] [address] [place] [address] Alison Dominique MD [address] [place] [address] Social History Tobacco Use Types Packs/Day Years Used Date Smoking Tobacco: Former Cigarettes Smokeless Tobacco: Never Alcohol Use Standard Drinks/Week Comments Defer 0 (1 standard drink = 0.6 oz pur e alcohol) Depression Answer Date Recorded Patient Health Questionnaire-9 Score 10 03/19/2023 Depression Answer Date Recorded Patient Health Questionnaire-2 [...] 3:00 PM EST Office Visit [facility] [address] [place] [address] Johnie Kearns documented as of this encounter Visit Diagnoses Not on filedocumented in this encounter Additional Health Concerns Assessment Noted Time PHQ-9 Depression Total Score: 10 03/19/ 023 9:25 AM EDT documented as of this encounter Care Teams Director Of Primary Relationship Specialty Start Date End Date Chris Ackerman MD [address] [place] [id number] PCP - General Internal Medicine 05/24/20 Haleigh Vanegas 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
--- OUTSIDE RECORDS SUMMARY | 2025-04-18 11:45 | XMS_ITS | Clinical Summary ---
Author Organization [address] [facility] Address [address] [place] [address] Phone Care Team Providers Care Information Tech Name Role Phone Chris Ackerman Primary Care Provide r Allergies Active Allergy Reactions Criticality Noted Date Comments Hyaluronic Acid Gout 01/05/2025 Triggers gout flare-ups Sodium Hyaluronate (Viscosup) Gout 01/05/2025 Triggers gout flare-ups Medications CHOLECALCIFEROL , VITAMIN D3, ORAL Take by mouth. 2000 units Active metoprolol tartrate (LOPRESSOR) 50 mg tablet Take 50 mg by mouth 2 times daily. Active pantoprazole (PROTONIX) 40 mg packet Take 1 packet (40 mg total) by mouth 1 (one) time each day before breakfast. Active DULoxetine (CYMBALTA) [address] capsule Take 2 capsules (120 mg total) by mouth 1 (one) time each day. Active fluticasone propionate (FLONASE) 50 mcg/actuation nasal spray Administer 2 sprays into each nostril 1 (one) time each day. Active gabapentin (NEURONTIN) 600 mg tablet Take 1 tablet (600 mg total) by mouth 3 (three) times a day. 5 Active amLODIPine (NORVASC) 5 mg tablet Take 1 tablet (5 mg total) by mouth 1 (one) time each day. 30 each 5 5 07/03/20 25 Active losartan (COZAAR) 25 mg tablet Take 1 tablet (25 mg total) by mouth 1 (one) time each day. 30 each 5 01/05/20 26 Active hydrALAZINE (APRESOLINE) 25 mg tablet Take 2 tablets (50 mg total) by mouth 2 (two) times a day. 120 each 5 Active nicotine (NICODERM CQ) 14 mg/[address] 1 patch on the skin 1 (one) time each day. 30 each 5 Active Additional Information Patient not taking.Reported on 01/17/2025 tirzepatide, weight loss, (Zepbound) 10 mg/0.5 mL injection Inject 0.5 mL (10 mg total) under the skin every 7 (seven) days for 28 days. 2 mL 5 04/26/20 25 Active tirzepatide, weight loss, (Zepbound) 7.5 mg/0.5 mL injection Inject 0.5 mL (7.5 mg total) under the skin every 7 (seven) days. 2 mL 5 03/26/20 25 Hospital, Clinic, or Other Facility Administered Medication Ordered Dose Route Frequency Start Date End Date Status lidocaine (PF) (XYLOCAINE-MPF) 1 % injection 0.5 mLIndications:Planta r fasciitis .5 mL inj Once PRN Procedure 03/27/2025 03/27/2025 Ended triamcinolone acetonide (KENALOG-40) 40 mg/mL injection 40 mgIndications:Planta r fasciitis 40 mg IAtc Once PRN Procedure 03/27/2025 03/27/2025 Ended Active Problems Problem Noted Date Diagnosed Date Acute gout 01/18/2025 Chronic renal impairment, st age 2 (moderate) ([facility] V24, [facility] V28) 01/11/2025 Obstructive sleep apnea syndrome 01/11/2025 Gastroesophageal reflux disease without esophagi tis 01/11/2025 Asthma 01/11/2025 Smoking history 01/11/2025 Septic arthritis ([facility] [place]24, [facility] V28) 12/23 Acute gout due to renal impairment involving lef t knee 01/04/2025 Arthritis of knee 01/02/2025 Class 3 severe obesity with body mass index (BMI) of 60.0 to 69.9 in adult ([facility] V24, [facility] V28) 05/30/2024 Primary hypertension 02/23/2024 Stage 3 chronic kidney disea se due to benign hypertension ([facility] V24, [facility] V28) 02/23/2024 Wound disruption, post-op, skin 12/12/2021 Encounters Date Type Department Care Team Description 03/28/[address] [facility] 175 [facility] [address] [place] [address] Silvestre Finn MD 03/27/2025 1:15 PM EDT Office Visit Orthopedic Surgery [facility] 250 [address] [facility] [address] [place] [address] Chino Santana DPM Achilles tendinitis of left lower extremity (Primary Dx); Plantar fasciitis 01/23/2025 Lab Requisition [facility] - Main Lab [address] [facility] [place] [address] Jossie Raygoza NP Arthritis due to other bacteria, left knee ([facility] V24, [facility] V28); Chronic kidney disease, stage 4 (severe) ([facility] V24, [facility] V28) 01/20/2025 1:19 AM EDT - 01/20/2025 3:40 PM EDT Emergency [facility] Emergency [address] [place] [address] Jordyn Meza MD Landry, Jonathan P, MD Status post peripherally inserted central catheter (PICC) central line placement (Primary Dx); Pyogenic arthritis of knee, due to unspecified organism, unspecified laterality ([facility] V24, [facility] V28) Discharge Disposition: Home or Self Care 01/20/2025 Telephone Infectious Disease - [address] [place] [address] Kaley Tejeda RN 01/17/2025 11:55 AM EDT - 01/18/2025 11:28 AM EDT Hospital Encounter [facility] Urology Unit [address] [place] [address] Cristhian Pearson MD Sondhi, Vikram, MD Alam, Aroosa, MD Leg swelling (Primary Dx); Chronic pain of left knee; SIRS (systemic inflammatory response syndrome) ([facility] V24, [facility] V28); Acute gout due to renal impairment involving left knee Discharge Disposition: [place] [facility] [place] 3 Months Surgical History Surgery Date Site/Laterality Comments OTHER SURGICAL HISTORY [id number] PROCEDURE: ---- OTHER ----; COMMENT: colostomy reversal HEMICOLECTOMY W/ OSTOMY Perforation OSTOMY TAKE DOWN Medical History Medical History Date Comments Hypertension Morbid (severe) obesity due to excess calories ([facility] V24, [facility] V28) CKD (chronic kidney disease) stage 3, GFR 30-59 ml/min ([facility] V24, [facility] V28) Asthma MORIAH (obstructive sleep apnea) GERD (gastroesophageal reflux disease) Family History Medical History Relation Name Comments Coronary artery disease Other Diabetes Other Relation Name Status Comments Other Social History Tobacco Use Types Packs/Day Years Used Date Smoking Tobacco: Every Day Cigarettes Smokeless Tobacco: Never Tobacco Cessation:Ready to Q uit: Not Asked; Counseling Given: Not Answered Comments:3 cigarettes/day Alcohol Use Standard Drinks/Week Comments [...] not to disclose 2024 9:14 AM EDT Obstetrics History Last Filed Vital Signs Vital Sign Reading Time Taken Comments Blood Pressure 139/83 01/20/2025 12:01 PM EDT Pulse 60 01/20/2025 12:01 PM EDT Temperature 36.6 C (97.9 F) 01/20/2025 10:37 AM EDT Respiratory Rate 25 01/20/2025 12:01 PM EDT Oxygen Saturation 100% 01/20/2025 12:01 PM EDT Inhaled Oxygen Concentration - - Weight 194 kg (428 lb) 01/19/2025 10:56 PM EDT Height 175.3 cm (5' 9 ) 01/19/2025 10:56 PM EDT Body Mass Index 63.2 01/19/2025 10:56 PM EDT Plan of Treatment Upcoming Encounters Date Type Department Care Team (Late st Contact Info) Description 04/21/2025 8:45 AM EDT Office Visit Orthopedic Surgery [facility] 160 [address] [facility] [address] [place] [address] Mayte Kamara MD [address] [place] [address] 05/10/2025 9:00 AM EDT Evaluation [facility] [place] [address] [facility] [address] [place] [address] Sanjuana Pradhan, PT 05/29/2025 1:15 PM EDT Office Visit Orthopedic Surgery [facility] 250 [address] [facility] [address] [place] [address] Chino Santana DPM [address] [place] [address] 07/27/2025 1:45 PM EST Office Visit Bariatric Surgery [facility] 175 [facility] [address] [place] [address] Silvestre Finn MD [address] [place] [address] Health Maintenance Due Date Last Done Comments COVID-19 Vaccine (#1) 1989 Hepatitis B Vaccines (1 of 3 - 19+ 3-dose series) 2003 Pneumococcal Vaccine: Pediatrics (0 to 5 Years) and At-Risk Patients (6 to 49 Years) (1 of 2 - PCV) 2003 DTaP,Tdap,and Td Vaccines (2 - Td or Tdap) 07/07/2021 07/07/2011 Medicare Annual Wellness Visit 08/03/2022 Social Influencers of Health Screening 08/03/2022 Depression Screening 08/24/2024 Influenza Vaccine (#1) 2025 Hypertension/CHF/CAD Annual BMP Blood Test 03/30/2026 03/30/2025, 01/23/2025, 01/18/2025, Additional history exists Cholesterol Screening (Lipid Panel) 03/30/2030 03/30/2025, 11/04/2023, 11/04/2023 HIV Screening Completed 07/06/2020, 07/06/2020 Hepatitis C Screening Completed 11/04/2023, 024 HIB Vaccines Aged Out No longer eligi ble based on patient's age to complete this topic HPV Vaccines Aged Out No longer eligi ble based on patient's age to complete this topic Hepatitis A Vaccines Aged Out No long er eligible based on patient's age to complete this topic IPV Vaccines Aged Out No longer eligi ble based on patient's age to complete this topic MMR Vaccines Aged Out No longer eligi ble based on patient's age to complete this topic Meningococcal ACWY Vaccine Aged Out N o longer eligible based on patient's age to complete this topic Meningococcal B Vaccine Aged Out No l onger eligible based on patient's age to complete this topic RSV Immunization Patients Under 20 months Aged Out No longer eligible based on patient's age to complete this topic Varicella Vaccines Aged Out No longer eligible based on patient's age to complete this topic Medical Devices Implanted Type Area Screw Machine Set Up Operator Device Identifier Shelf Expiration Date Model / Serial / Lot Tray Rad Cath 1lum Poly 4f - [id number] Implanted:Qty: 1 on 01/20/2025 by Fiorella Dc MD at [facility] Central/Savita pheral Catheters and Ports Right: Arm BD VASCULAR ACCESS DEVICES FKA BARD ACCESS [id number] 07/23/2026 [id number] / / [id number] Procedures Procedure Name Priority Date/Time Associated Diagnosis Comments URINALYSIS WITH REFLEX MICROSCOPIC Routine 03/30/2025 11:24 AM EDT Chronic kidney disease, stage III (moderate) (CMS/HCC V24, CMS/HCC V28) Benign hypertensive kidney disease with chronic kidney disease stage I through stage IV, or unspecified(403.10) MICROALBUMIN CREATININE URINE RATIO Routine 03/30/2025 11:24 AM EDT Chronic kidney disease, stage III (moderate) (CMS/HCC V24, CMS/HCC V28) Benign hypertensive kidney disease with chronic kidney disease stage I through stage IV, or unspecified(403.10) URINALYSIS WITH REFLEX MICROSCOPIC Routine 03/30/2025 11:24 AM EDT Chronic kidney disease, stage III (moderate) (CMS/HCC V24, CMS/HCC V28) Benign hypertensive kidney disease with chronic kidney disease stage I through stage IV, or unspecified(403.10) VITAMIN B12 Routine 03/30/2025 11:14 AM EDT Class 3 severe obesity with body mass index (BMI) of 60.0 to 69.9 in adult, unspecified obesity type, unspecified whether serious comorbidity present (CMS/HCC V24, CMS/HCC V28) VITAMIN B1 Routine 03/30/2025 11:14 AM EDT Class 3 severe obesity with body mass index (BMI) of 60.0 to 69.9 in adult, unspecified obesity type, unspecified whether serious comorbidity present (CMS/HCC V24, CMS/HCC V28) THYROID STIMULATING HORMONE Routine 03/30/2025 11:14 AM EDT Class 3 severe obesity with body mass index (BMI) of 60.0 to 69.9 in adult, unspecified obesity type, unspecified whether serious comorbidity present (CMS/HCC V24, CMS/HCC V28) NICOTINE AND COTININE Routine 03/30/2025 11:14 AM EDT Class 3 severe obesity with body mass index (BMI) of 60.0 to 69.9 in adult, unspecified obesity type, unspecified whether serious comorbidity present (CMS/HCC V24, CMS/HCC V28) LIPID PANEL WITH REFLEX TO DIRECT LDL Routine 03/30/2025 11:14 AM EDT Class 3 severe obesity with body mass index (BMI) of 60.0 to 69.9 in adult, unspecified obesity type, unspecified whether serious comorbidity present (CMS/HCC V24, CMS/HCC V28) FOLATE Routine 03/30/2025 11:14 AM EDT Class 3 severe obesity with body mass index (BMI) of 60.0 to 69.9 in adult, unspecified obesity type, unspecified whether serious comorbidity present (CMS/HCC V24, CMS/HCC V28) CORTISOL Routine 03/30/2025 11:14 AM EDT Class 3 severe obesity with body mass index (BMI) of 60.0 to 69.9 in adult, unspecified obesity type, unspecified whether serious comorbidity present (CMS/HCC V24, CMS/HCC V28) COMPREHENSIVE METABOLIC PANEL Routine 03/30/2025 11:14 AM EDT Class 3 severe obesity with body mass index (BMI) of 60.0 to 69.9 in adult, unspecified obesity type, unspecified whether serious comorbidity present (CMS/HCC V24, CMS/HCC V28) CBC WITH AUTO DIFFERENTIAL Routine 03/30/2025 11:13 AM EDT Chronic kidney disease, stage III (moderate) (CMS/HCC V24, CMS/HCC V28) Benign hypertensive kidney disease with chronic kidney disease stage I through stage IV, or unspecified(403.10) CYSTATIN C, SERUM Routine 03/30/2025 11: 13 AM EDT Chronic kidney disease, stage III (moderate) (CMS/HCC V24, CMS/HCC V28) Benign hypertensive kidney disease with chronic kidney disease stage I through stage IV, or unspecified(403.10) PHOSPHORUS Routine 03/30/2025 11:13 AM EDT Chronic kidney disease, stage III (moderate) (CMS/HCC V24, CMS/HCC V28) Benign hypertensive kidney disease with chronic kidney disease stage I through stage IV, or unspecified(403.10) MAGNESIUM Routine 03/30/2025 11:13 AM EDT Chronic kidney disease, stage III (moderate) (CMS/HCC V24, CMS/HCC V28) Benign hypertensive kidney disease with chronic kidney disease stage I through stage IV, or unspecified(403.10) PARATHYROID HORMONE INTACT Routine 03/30/2025 11:13 AM EDT Chronic kidney disease, stage III (moderate) (CMS/HCC V24, CMS/HCC V28) Benign hypertensive kidney disease with chronic kidney disease stage I through stage IV, or unspecified(403.10) VITAMIN D 25 HYDROXY Routine 03/30/2025 11:13 AM EDT Chronic kidney disease, stage III (moderate) (CMS/HCC V24, CMS/HCC V28) Benign hypertensive kidney disease with chronic kidney disease stage I through stage IV, or unspecified(403.10) CBC AND DIFFERENTIAL Routine 03/30/2025 11:13 AM EDT Chronic kidney disease, stage III (moderate) (CMS/HCC V24, CMS/HCC V28) Benign hypertensive kidney disease with chronic kidney disease stage I through stage IV, or unspecified(403.10) HEMOGLOBIN A1C Routine 03/30/2025 11:13 AM EDT Chronic kidney disease, stage III (moderate) (CMS/HCC V24, CMS/HCC V28) Benign hypertensive kidney disease with chronic kidney disease stage I through stage IV, or unspecified(403.10) IRON AND TIBC Routine 03/30/2025 11:13 AM EDT Chronic kidney disease, stage III (moderate) (CMS/HCC V24, CMS/HCC V28) Benign hypertensive kidney disease with chronic kidney disease stage I through stage IV, or unspecified(403.10) FERRITIN Routine 03/30/2025 11:13 AM EDT Chronic kidney disease, stage III (moderate) (CMS/HCC V24, CMS/HCC V28) Benign hypertensive kidney disease with chronic kidney disease stage I through stage IV, or unspecified(403.10) URIC ACID Routine 03/30/2025 11:13 AM EDT Chronic kidney disease, stage III (moderate) (CMS/HCC V24, CMS/HCC V28) Benign hypertensive kidney disease with chronic kidney disease stage I through stage IV, or unspecified(403.10) INJECTION TENDON OR LIGAMENT Routine 03/27/2025 1:15 PM EDT Plantar fasciitis CBC WITH AUTO DIFFERENTIAL Routine 01/23/2025 1:00 PM EDT Arthritis due to other bacteria, left knee (CMS/[facility] V24, CMS/HCC V28) Chronic kidney disease, stage [...] stage 4 (severe) (CMS/HCC V24, CMS/HCC V28) IR INSERT PICC WO PORT OR PUMP W IMAGE GUIDANCE MORE 5 YRS Routine 01/20/2025 12:10 PM EDT COMPLETE BLOOD COUNT Routine 01/18/2025 5:56 AM EDT BASIC METABOLIC PANEL Routine 01/18/2025 5:56 AM EDT ECG 12-LEAD Routine 01/17/2025 9:46 PM EDT XR CHEST 1 VIEW Routine 01/17/2025 8:41 PM EDT RESPIRATORY VIRUS PANEL MOLECULAR STUDY STAT 01/17/2025 8:18 PM EDT MCKEON URINE CULTURE TUBE Routine 01/17/2025 8:17 PM EDT URINALYSIS WITH REFLEX MICROSCOPIC AND CULTURE Routine 01/17/2025 8:17 PM EDT URINALYSIS WITH REFLEX MICROSCOPIC AND CULTURE Routine 01/17/2025 8:17 PM EDT POCT GLUCOSE BLOOD Routine 01/17/2025 7: 36 PM EDT XR KNEE 4+ VIEWS LEFT STAT 01/17/2025 4:17 PM EDT VAS US DUPLEX LOWER EXT VENOUS BILAT STAT 01/17/2025 1:18 PM EDT Leg swelling LACTATE STAT 01/17/2025 12:38 PM EDT CBC WITH AUTO DIFFERENTIAL STAT 01/17/2025 12:38 PM EDT ACTIVATED PARTIAL THROMBOPLASTIN TIME STAT 01/17/2025 12:38 PM EDT PROTHROMBIN TIME WITH INR STAT 01/17/2025 12:38 PM EDT BASIC METABOLIC PANEL STAT 01/17/2025 12:38 PM EDT CBC AND DIFFERENTIAL STAT 01/17/2025 12:38 PM EDT CULTURE BLOOD STAT 01/17/2025 12:38 PM EDT CULTURE BLOOD STAT 01/17/2025 12:38 PM EDT HEPATITIS C SCREENING Routine 11/04/2023 HIV SCREENING Routine 07/06/2020 from Last 3 Months or Most Recently Relevant to Health Maintenance Results * (ABNORMAL) Urinalysis with reflex microscopic (03/30/2025 11:24 AM EDT) [facility] [address] Specific [place] Urine 1.022 1.003 - 1.030 LAB URINALYSIS - AUTOMATED METHOD 03/30/2025 12:53 PM EDT [facility] pH, Urine 5.5 5.0 - 8.0 pH LAB URINALYSIS - AUTOMATED METHOD 03/30/2025 12:53 PM EDT [facility] Leukocytes, Urine Negative Negative LAB URINALYSIS - AUTOMATED METHOD 03/30/2025 12:53 PM EDT [facility] Nitrite, Urine Negative Negative LAB URINALYSIS - AUTOMATED METHOD 03/30/2025 12:53 PM EDT [facility] Protein, Urine Trace <=Trace mg/dL LAB URINALYSIS - AUTOMATED METHOD 03/30/2025 12:53 PM EDT [facility] Glucose, Urine Negative Negative mg/dL LAB URINALYSIS - AUTOMATED METHOD 03/30/2025 12:53 PM EDT [facility] Ketones, Urine 15(A) Negative mg/dL LAB URINALYSIS - AUTOMATED METHOD 03/30/2025 12:53 PM EDT [facility] Urobilinogen, Urine 1.0 0.2 - 1.0 mg/dL LAB URINALYSIS - AUTOMATED METHOD 03/30/2025 12:53 PM EDT [facility] Bilirubin, Urine Negative Negative LAB [facility]YSIS - [facility]OM[facility] Blood, Urine Negative Negative LAB URINALYSIS - AUTOMATED METHOD 03/30/2025 12:53 PM T [facility] Urine Urine specimen obtained by clean catch procedure / Unknown Non-blood Collection / Unknown 03/30/2025 11:24 AM EDT 03/30/2025 12:31 PM EDT us Cullen Reid MD LAB URINE ORDERABLES Final Result [facility] [address] [place] [address], * (ABNORMAL) Microalbumin creatinine urine ratio (03/30/2025 11:24 AM EDT) Creatinine, Urine 372.0 mg/dL LAB CHEMISTRY METHOD 03/30/2025 1:57 PM T [facility] Microalb, Ur 47.8(H) 0.0 - 29.0 mg/L LAB CHEMISTRY METHOD 03/30/2025 1:57 PM EDT [facility] Microalb/Crea t Ratio 13 <30 mg/g creat LAB CHEMISTRY METHOD 03/30/2025 1:57 PM EDT [facility] Urine Urine specimen obtained by clean catch procedure / Unknown Non-blood Collection / Unknown 03/30/2025 11:24 AM EDT 03/30/2025 12:30 PM EDT Cullen Reid MD LAB URINE ORDERABLES Final Result [facility] [address] [place] [address], [place] [phone] * (ABNORMAL) Lipid panel with reflex to direct LDL (03/30/2025 11:14 AM EDT) Cholesterol 142 0 - 200 mg/dL LAB CHEMISTRY METHOD 03/30/2025 1:52 PM EDT [facility] Triglycerides 146 0 - 150 mg/dL LAB CHEMISTRY METHOD 03/30/2025 1:52 PM EDT [facility] HDL 36(L) >=40 mg/dL LAB CHEMISTRY METHOD 03/30/2025 1:52 PM EDT [facility] LDL Calculated 77 0 - 100 mg/dL LAB CHEMISTRY METHOD 03/30/2025 1:52 PM EDT [facility] Comment:Estimated LDL Calcul ated using equation: Total cholesterol - HDL cholesterol - (Triglycerides/5) VLDL Cholesterol Sean 29.2 mg/dL LAB CHEMISTRY METHOD 03/30/2025 1:52 PM EDT [facility] Non HDL Chol. (LDL+VLDL) 106 <145 mg/dL LAB CHEMISTRY METHOD 03/30/2025 1:52 PM EDT [facility] Chol/HDL Ratio 3.9 0.0 - 4.4 LAB CHEMISTRY METHOD 03/30/2025 1:52 PM EDT [facility] Blood Venous blood specimen / Unknown Venipuncture / Unknown 03/30/2025 11:14 AM EDT 03/30/2025 12:30 PM EDT us Silvestre Finn MD LAB BLOOD ORDERABLES Final R esult [facility] [address] [place] [address], * (ABNORMAL) Nicotine and cotinine (03/30/2025 11:14 AM EDT) [facility] [address] Nicotine <2.0 <2.0 ng/mL 04/04/2025 6:55 AM EDT [facility] Cotinine 105.3(H) <2.0 ng/mL 04/04/2025 6:55 AM EDT [facility] Comment: Additional Reference Ranges: Active Tobacco Passive Abstinence User Exposure 2 Weeks and more Nicotine 30 - 50 ng/mL <2 ng/mL <2 ng/mL Cotinine 200 - 800 ng/mL <8 ng/mL <2 ng/mL Reference Ranges from: Clin. Chem.; 48:[id number] (2002) Direct any interpretive questions to the toxicology laboratory. This is for medical use only, it is not intended for forensic use. If applicable, any drug confirmation testing reported here was developed and the performance characteristics determined by [facility]. This confirmation testing has not been cleared or approved by the FDA. The laboratory is regulated under CLIA as qualified to perform high-complexity testing. This test is used for patient testing purposes. It should not be regarded as investigational or for research. Test performed at [facility], [address], [place] [address] Marilee Forrest MD, PhD - [employer] Blood Venous blood specimen / Unknown Venipuncture / Unknown 03/30/2025 11:14 AM EDT 03/30/2025 12:27 PM EDT Silvestre Finn MD LAB BLOOD ORDERABLES Final R esult [facility] [address] [place] [address] * Thyroid stimulating hormone (03/30/2025 11:14 AM EDT) Pathologist [facility] TSH 1.99 0.40 - 4.00 mcIU/mL LAB CHEMISTRY METHOD 03/30/2025 2:32 PM EDT [facility] Blood Venous blood specimen / Unknown Venipuncture / Unknown 03/30/2025 11:14 AM EDT 03/30/2025 12:30 PM EDT Silvestre Finn MD LAB BLOOD ORDERABLES Final R [facility] [address] [place] [address], [place] [phone] * Vitamin B1 (03/30/2025 11:14 AM EDT) [facility] [address] Vitamin B1 Whole Blood 46 38 - 122 ug/L 04/05/2025 12:22 PM EDT [facility] Comment: This test was developed and the performance characteristics determined by [facility]. It has not been cleared or approved by the FDA. The laboratory is regulated under CLIA as qualified to perform high-complexity testing. This test is used for patient testing purposes. It should not be regarded as investigational or for research. Test performed at [facility], [address], [place] [address] Marilee Forrest MD, PhD - [employer] Blood Venous blood specimen / Unknown Venipuncture / Unknown 03/30/2025 11:14 AM EDT 03/30/2025 12:27 PM EDT Silvestre Finn MD LAB BLOOD ORDERABLES Final R esult Performing Organization Address City/[facility]/ZIP Co [place] [address] [place] [address] * Folate (03/30/2025 11:14 AM EDT) Pathologist [facility] Folate 15.1 2.8 - 17.0 ng/ml LAB CHEMISTRY METHOD 03/30/2025 1:52 PM EDT [facility] Blood Venous blood specimen / Unknown Venipuncture / Unknown 03/30/2025 11:14 AM EDT 03/30/2025 12:30 PM EDT Silvestre Finn MD LAB BLOOD ORDERABLES Final R esult Performing Organization Address [facility] Co de Phone Number [facility] [address] [place], [place] [id number], [place] [phone] * Vitamin B12 (03/30/2025 11:14 AM EDT) [facility] [address] Vitamin B-12 392 250 - 900 pcg/mL LAB CHEMISTRY METHOD 03/30/2025 1:52 PM EDT [facility] Blood Venous blood specimen / Unknown Venipuncture / Unknown 03/30/2025 11:14 AM EDT 03/30/2025 12:30 PM EDT us Silvestre Finn MD LAB BLOOD ORDERABLES Final R esult Performing Organization Address City/[facility] Co de Phone Number [facility] [address] [place] [address], [place] [phone] * Cortisol (03/30/2025 11:14 AM EDT) Pathologist [facility] Cortisol 9.0 mcg/dL LAB CHEMISTRY METHOD 03/30/2025 2:32 PM EDT [facility] Blood Venous blood specimen / Unknown Venipuncture / Unknown 03/30/2025 11:14 AM EDT 03/30/2025 12:30 PM EDT Narrative [facility] - 03/30/2025 2:32 PM EDT CORTISOL REFERENCE RANGE 8 AM SPEC: 5.0-23.0 mcg/dL 4 PM SPEC: 3.0-16.0 mcg/dL 8 PM SPEC: <5.0 mcg/dL us Silvestre Finn MD LAB BLOOD ORDERABLES Final R esult [facility] [address] [place] [address], [place] [phone] * (ABNORMAL) Comprehensive metabolic panel (03/30/2025 11:14 AM EDT) Sodium 139 133 - 145 mmol/L LAB CHEMISTRY METHOD 03/30/2025 1:57 PM EDT [facility] Potassium 4.1 3.5 - 5.5 mmol/L LAB CHEMISTRY METHOD 03/30/2025 1:57 PM EDT [facility] Chloride 109 96 - 110 mmol/L LAB CHEMISTRY METHOD 03/30/2025 1:57 PM EDT [facility] CO2 24 21 - 32 mmol/L LAB CHEMISTRY METHOD 03/30/2025 1:57 PM EDT [facility] Anion Gap 6 3 - 11 LAB CHEMISTRY METHOD 03/30/2025 1:57 PM EDT [facility] Glucose 68(L) 70 - 100 mg/dL LAB CHEMISTRY METHOD 03/30/2025 1:57 PM EDT [facility] BUN 24 5 - 25 mg/dL LAB CHEMISTRY METHOD 03/30/2025 1:57 PM EDT [facility] Creatinine 2.29(H) 0.70 - 1.30 mg/dL LAB CHEMISTRY METHOD 03/30/2025 1:57 PM EDT [facility] eGFR 36(L) >=60 mL/min/1. 73m2 LAB CHEMISTRY METHOD 03/30/2025 1:57 PM EDT [facility] Comment:Calculation based on the Chronic Kidney Disease Epidemiology Collaboration (CKD-EPI) equation refit without adjustment for race. BUN/Creatinine Ratio 10.5 LAB CHEMISTRY METHOD 03/30/2025 1:57 PM EDT [facility] Calcium 8.4(L) 8.5 - 10.5 mg/dL LAB CHEMISTRY METHOD 03/30/2025 1:57 PM EDT [facility] AST (SGOT) 21 10 - 42 unit/L LAB CHEMISTRY METHOD 03/30/2025 1:57 PM EDT [facility] ALT (SGPT) 17 10 - 60 unit/L LAB CHEMISTRY METHOD 03/30/2025 1:57 PM [facility] Alkaline Phosphatase 107 42 - 121 unit/L LAB CHEMISTRY METHOD 03/30/2025 1[facility]57 [facility] Total Protein 7.1 6.0 - 8.0 g/dL LAB CHEMISTRY METHOD 03/30/2025 1:57 PM EDT [facility] Albumin 3.8 3.2 - 5.0 g/dL LAB CHEMISTRY METHOD 03/30/2025 1:57 [facility] Total Bilirubin 0.9 0.0 - 1.4 mg/dL LAB CHEMISTRY METHOD 03/30/2025 1:57 PM [facility] Blood Venous blood specimen / Unknown Venipuncture / Unknown 03/30/2025 11:14 AM EDT 03/30/2025 12:30 PM EDT us Silvestre Finn MD LAB BLOOD ORDERABLES Final R esult [facility] [address] [place] [address], [place] [phone] * (ABNORMAL) Cystatin c, serum (03/30/2025 11:13 AM EDT) Cystatin C 2.8(H) 0.5 - 1.2 mg/L 04/01/2025 4:55 AM EDT [facility] Comment: Test performed at [facility], [address], [place] [address] Marilee Forrest MD, PhD - [employer] Blood Venous blood specimen / Unknown Venipuncture / Unknown 03/30/2025 11:13 AM EDT 03/30/2025 12:30 PM EDT us Cullen Reid MD LAB BLOOD ORDERABLES Final Result [facility] [address] [place] [address] * (ABNORMAL) CBC auto differential (03/30/2025 11:13 AM EDT) Only the most recent of3 resultswithin the time period is included. [facility] [address] WBC 9.3 4.8 - 10.8 K/mcL LAB HEMETOLOGY METHOD 03/30/2025 1:01 PM EDT [facility] RBC 4.60 4.50 - 5.50 M/mcL LAB HEMETOLOGY METHOD 03/30/2025 1[facility] Hemoglobin 12.8(L) 13.5 - 17.5 g/dL LAB HEMETOLOGY METHOD 03/30/2025 1:01 PM [facility] Hematocrit 41.3(L) 42.0 - 54.0 % LAB HEMETOLOGY METHOD 03/30/2025 1:01 PM [facility] MCV 90.8 79.0 - 98.0 FL LAB HEMETOLOGY METHOD 03/30/2025 1:01 PM [facility] MCH 28.1 27.0 - 32.0 pcg LAB HEMETOLOGY METHOD 03/30/2025 1:01 PM [facility] MCHC 31.0(L) 32.0 - 37.0 g/dL LAB HEMETOLOGY METHOD 03/30/2025 1:01 PM [facility] RDW 16.0(H) 11.0 - 15.0 % LAB HEMETOLOGY METHOD 03/30/2025 1:01 PM [facility] Platelets 165 130 - 400 K/mcL LAB HEMETOLOGY METHOD 03/30/2025 1:01 PM [facility] MPV 13.3(H) 7.0 - 11.0 FL LAB HEMETOLOGY METHOD 03/30/2025 1:01 PM [facility] NRBC 0.0 <1.0 % LAB HEMETOLOGY METHOD 03/30/2025 1:01 PM [facility] NRBC Absolute 0.00 <0.10 K/mcL LAB HEMETOLOGY METHOD 03/30/2025 1:01 PM [facility] Neutrophils Relative 68.0 % LAB HEMETOLOGY METHOD 03/30/2025 1:01 [facility] Lymphocytes Relative 21.6 % LAB HEMETOLOGY METHOD 03/30/2025 1:01 [facility] Monocytes Relative 8.8 % LAB HEMETOLOGY METHOD 03/30/2025 1:01 PM [facility] Eosinophils Relative 0.8 % LAB HEMETOLOGY METHOD 03/30/2025 1:01 PM [facility] Basophils Relative 0.5 % LAB HEMETOLOGY METHOD 03/30/2025 1:01 PM [facility] Immature Granulocytes Relative 0.3 % LAB HEMETOLOGY METHOD 03/30/2025 1:01 PM [facility] Neutrophils Absolute 6.31 1.50 - 7.00 K/mcL LAB HEMETOLOGY METHOD 03/30/2025 1:01 PM EDT [facility] Lymphocytes Absolute 2.01 1.00 - 5.00 K/mcL LAB HEMETOLOGY METHOD 03/30/2025 1:01 PM EDT [facility] Monocytes Absolute 0.82 0.20 - 1.00 K/mcL LAB HEMETOLOGY METHOD 03/30/2025 1[facility] Eosinophils Absolute 0.07 0.00 - 0.50 K/[facility] LAB HEMETOLOGY METHOD 03/30/2025 1:01 PM EDT [facility] Basophils Absolute 0.05 0.00 - 0.20 K/[facility] HEMETOLOGY METHOD 03/30/2025 1:01 PM [facility] Immature Granulocytes Absolute 0.03 0.00 - 0.03 K/mcL LAB HEMETOLOGY METHOD 03/30/2025 1:01 PM [facility] Blood Venous blood specimen / Unknown Venipuncture / Unknown 03/30/2025 11:13 AM EDT 03/30/2025 12:32 PM EDT Cullen Reid MD LAB BLOOD ORDERABLES Final Result [facility] [address] [place] [address], * (ABNORMAL) Iron and TIBC (03/30/2025 11:13 AM EDT) Iron 96 50 - 160 mcg/dL LAB CHEMISTRY METHOD 03/30/2025 1:27 [facility] TIBC 228(L) 250 - 450 mcg/dL LAB CHEMISTRY METHOD 03/30/2025 1:27 PM [facility] Iron Saturation 42 20 - 50 % LAB CHEMISTRY METHOD 03/30/2025 1:27 PM [facility] Blood Venous blood specimen / Unknown Venipuncture / Unknown 03/30/2025 11:13 AM EDT 03/30/2025 12:30 PM EDT us Cullen Reid MD LAB BLOOD ORDERABLES Final Result Performing Organization Address [facility]/ZIP Co de Phone Number [facility] [address] [place] [address], [place] [phone] * Vitamin D 25 hydroxy (03/30/2025 11:13 AM EDT) Vit D, 25-Hydroxy 31.7 30.0 - 80.0 ng/mL LAB CHEMISTRY METHOD 03/30/2025 2:15 PM EDT [facility] Blood Venous blood specimen / Unknown Venipuncture / Unknown 03/30/2025 11:13 AM EDT 03/30/2025 12:30 PM EDT us Cullen Reid MD LAB BLOOD ORDERABLES Final Result Performing Organization Address [facility] de Phone Number [facility] [address] [place] [address], [place] [phone] * Uric acid (03/30/2025 11:13 AM EDT) [facility] [address] Uric Acid 8.4 3.7 - 9.2 mg/dL LAB CHEMISTRY METHOD 03/30/2025 1:26 PM EDT [facility] Blood Venous blood specimen / Unknown Venipuncture / Unknown 03/30/2025 11:13 AM EDT 03/30/2025 12:30 PM EDT us Cullen Reid MD LAB BLOOD ORDERABLES Final Result Performing Organization Address [facility]/ZIP Co de Phone Number [facility] [address] [place] [address], [place] [phone] * Phosphorus (03/30/2025 11:13 AM EDT) Phosphorus 2.9 2.5 - 4.5 mg/dL LAB CHEMISTRY METHOD 03/30/2025 1:26 PM EDT [facility] Blood Venous blood specimen / Unknown Venipuncture / Unknown 03/30/2025 11:13 AM EDT 03/30/2025 12:30 PM EDT us Cullen Reid MD LAB BLOOD ORDERABLES Final Result Performing Organization Address [facility]/ZIP Co de Phone Number [facility] [address] [place] [address], [place] [phone] * (ABNORMAL) Parathyroid hormone intact (03/30/2025 11:13 AM EDT) PTH 202.9(H) 18.5 - 88.0 pcg/mL LAB CHEMISTRY METHOD 03/30/2025 2:18 PM EDT [facility] Blood Venous blood specimen / Unknown Venipuncture / Unknown 03/30/2025 11:13 AM EDT 03/30/2025 12:30 PM EDT us Cullen Reid MD LAB BLOOD ORDERABLES Final Result Performing Organization Address City/[facility]/ZIP Co de Phone Number [facility] [address] [place] [address], [place] [phone] * Magnesium (03/30/2025 11:13 AM EDT) Magnesium 2.3 1.9 - 2.6 mg/dL LAB CHEMISTRY METHOD 03/30/2025 1:26 PM EDT [facility] Blood Venous blood specimen / Unknown Venipuncture / Unknown 03/30/2025 11:13 AM EDT 03/30/2025 12:30 PM EDT us Cullen Reid MD LAB BLOOD ORDERABLES Final Result Performing Organization Address [facility]/ZIP Co de Phone Number [facility] [address] [place] [address], [place] [phone] * Hemoglobin A1c (03/30/2025 11:13 AM EDT) [facility] [address] Hemoglobin A1C 5.0 <6.5 % LAB CHEMISTRY METHOD 03/30/2025 1:50 PM EDT [facility] Mean Bld Glu Estim. 97 mg/dL LAB CHEMISTRY METHOD 03/30/2025 1:50 PM EDT [facility] Blood Venous blood specimen / Unknown Venipuncture / Unknown 03/30/2025 11:13 AM EDT 03/30/2025 12:32 PM EDT us Cullen Reid MD LAB BLOOD ORDERABLES Final Result Performing Organization Address [facility] Co de Phone Number [facility] [address] [place] [address], [place] [phone] * Ferritin (03/30/2025 11:13 AM EDT) [facility] [address] Ferritin 167 26 - 388 ng/mL LAB CHEMISTRY METHOD 03/30/2025 1:26 PM EDT [facility] Blood Venous blood specimen / Unknown Venipuncture / Unknown 03/30/2025 11:13 AM EDT 03/30/2025 12:30 PM EDT us Cullen Reid MD LAB BLOOD ORDERABLES Final Result Performing Organization Address [facility]/ZIP Co de Phone Number [facility] [address] [place] [address], [place] [phone] * Injection tendon or ligament (03/27/2025 1:15 PM EDT) Narrative Chino Santana DPM - 03/27/2025 1:15 PM EDT Chino Santana DPM 03/27/2025 7:22 PM Injection tendon or ligament Indications: pain Details: 25 G needle Medications: 0.5 mL lidocaine (PF) 1 %; 40 mg triamcinolone acetonide 40 mg/mL Informed Consent: Laterality: Left us Chino Santana DPM IN CLINIC/BEDSIDE ORDERABLE S Final Result * (ABNORMAL) Basic metabolic panel (01/23/2025 1:00 PM EDT) Only the most recent of3 resultswithin the time period is included. [facility] [address] Sodium 144 133 - 145 mmol/L LAB CHEMISTRY METHOD 01/23/2025 3:27 PM [facility] Potassium 4.0 3.5 - 5.5 mmol/L LAB CHEMISTRY METHOD 01/23/2025 3:27 PM [facility] Chloride 111(H) 96 - 110 mmol/L LAB CHEMISTRY METHOD 01/23/2025 3:27 PM [facility] CO2 24 21 - 32 mmol/L LAB CHEMISTRY METHOD 01/23/2025 3:27 PM [facility] Anion Gap 9 3 - 11 LAB CHEMISTRY METHOD 01/23/2025 3:27 PM [facility] Glucose 78 70 - 100 mg/dL LAB CHEMISTRY METHOD 01/23/2025 3:27 PM [facility] BUN 14 5 - 25 mg/dL LAB CHEMISTRY METHOD 01/23/2025 3:27 PM [facility] Creatinine 1.39(H) 0.70 - 1.30 mg/dL LAB CHEMISTRY METHOD 01/23/2025 3:27 PM [facility] eGFR 66 >=60 mL/min/1. 73m2 LAB CHEMISTRY METHOD 01/23/2025 3:27 PM [facility] Comment:Calculation based on the Chronic Kidney Disease Epidemiology Collaboration (CKD-EPI) equation refit without adjustment for race. BUN/Creatinine Ratio 10.1 LAB CHEMISTRY METHOD 01/23/2025 3:27 PM EDT [facility] Calcium 8.1(L) 8.5 - 10.5 mg/dL LAB CHEMISTRY METHOD 01/23/2025 3:27 PM EDT [facility] Blood Venous blood specimen / Unknown 01/23/2025 1:00 PM EDT 01/23/2025 2:12 PM EDT us Jossie Raygoza [employer] ATTENDANT LAB BLOOD ORDERABLES Final Resul t [facility] [address] [place] [address], [place] [phone] * IR Insert PICC wo Port or Pump w Image Guidance More 5 yrs (01/20/2025 12:10 PM EDT) Anatomical Region Laterality Modality N/A Interventional R adiology 01/20/2025 2:22 PM EDT Impressions 01/20/2025 2:24 PM EDT Successful placement of 45 cm PICC line with tip in the distal superior vena cava. This line may be used immediately. -------- FINAL REPORT -------- Dictated By: Fiorella Dc Dictated Date: 01/20/2025 14:22 ET Assigned Physician: Fiorella Dc Reviewed and Electronically Signed By: Fiorella Dc Signed Date: 01/20/2025 14:24 ET Workstation ID: [id number] Transcribed By: Self Edit Transcribed Date: 01/20/2025 14:22 ET Narrative 01/20/2025 2:24 PM EDT INDICATION: Septic arthritis with need for intravenous antibiotic PROCEDURE: Consent previously obtained for PICC line placement prior relevant studies: none MEDICATIONS: Local anesthesia: 4 cc of 1% buffered lidocaine administered subcutaneously and down to the localized pain. TECHNIQUE: Patient positioned supine on the angiographic table and the right arm was draped and prepped using maximum sterile barrier. Under real-time ultrasound guidance venous access was obtained into localized upper extremity vein. The microwire was advanced through the needle and fluoroscopically guided into the superior vena cava. The needle was exchanged for a 5 Nigerian peel-away sheath. The catheter was advanced through the peel-away sheath which was subsequently removed. The position of the catheter was checked under fluoroscopy and then was flushed and heparinized as per protocol. A sterile dressing was applied. Total patient dose (air kerma): 12 mGy FINDINGS: Single ultrasound image demonstrates patent upper extremity basilic/brachial vein. Single chest image demonstrates newly placed PICC line with tip in the distal SVC. Procedure Note Fiorella Dc MD - 01/20/2025 INDICATION: Septic arthritis with need for intravenous antibiotic PROCEDURE: Consent previously obtained for PICC line placement prior relevant studies: none MEDICATIONS: Local anesthesia: 4 cc of 1% buffered lidocaine administeredsubcutaneously and down to the localized pain. TECHNIQUE: Patient positioned supine on the angiographic table and theright arm was draped and prepped using maximum sterile barrier. Underreal-time ultrasound guidance venous access was obtained into localizedupper extremity vein. The microwire was advanced through the needle andfluoroscopically guided into the superior vena cava. The needle wasexchanged for a 5 Nigerian peel-away sheath. The catheter was advancedthrough the peel-away sheath which was subsequently removed. The positionof the catheter was checked under fluoroscopy and then was flushed andheparinized as per protocol. A sterile dressing was applied. Total patient dose (air kerma): 12 mGy FINDINGS: Single ultrasound image demonstrates patent upper extremitybasilic/brachial vein. Single chest image demonstrates newly placed PICC line with tip in thedistal SVC. IMPRESSION: Successful placement of 45 cm PICC line with tip in the distal superiorvena cava. This line may be used immediately. -------- FINAL REPORT -------- Dictated By: Fiorella Dc Dictated Date: 01/20/2025 14:22 ET Assigned Physician: Fiorella Dc Reviewed and Electronically Signed By: Fiorella Dc Signed Date: 01/20/2025 14:24 ET Workstation ID: [id number] Transcribed By: Self Edit Transcribed Date: 01/20/2025 14:22 ET Fiorella Dc MD IMG IR PROCEDURES Final Result * (ABNORMAL) Complete blood count (01/18/2025 5:56 AM EDT) [facility] Signature WBC 19.0(H) 4.8 - 10.8 K/mcL LAB HEMETOLOGY METHOD 01/18/2025 6:25 AM [facility] RBC 4.00(L) 4.50 - 5.50 M/mcL LAB HEMETOLOGY METHOD 01/18/2025 6:25 AM [facility] Hemoglobin 11.5(L) 13.5 - 17.5 g/dL LAB HEMETOLOGY METHOD 01/18/2025 6:25 AM [facility] Hematocrit 36.6(L) 42.0 - 54.0 % LAB HEMETOLOGY METHOD 01/18/2025 6:25 AM [facility] MCV 91.5 79.0 - 98.0 FL LAB HEMETOLOGY METHOD 01/18/2025 6:25 AM [facility] MCH 28.8 27.0 - 32.0 pcg LAB HEMETOLOGY METHOD 01/18/2025 6:25 AM [facility] MCHC 31.4(L) 32.0 - 37.0 g/dL LAB HEMETOLOGY METHOD 01/18/2025 6:25 AM [facility] RDW 14.8 11.0 - 15.0 % LAB HEMETOLOGY METHOD 01/18/2025 6:25 AM [facility] Platelets 211 130 - 400 K/mcL LAB HEMETOLOGY METHOD 01/18/2025 6:25 AM [facility] MPV 11.6(H) 7.0 - 11.0 FL LAB HEMETOLOGY METHOD 01/18/2025 6:25 AM [facility] NRBC 0.0 <1.0 % LAB HEMETOLOGY METHOD 01/18/2025 6:25 AM EDT [facility] NRBC Absolute 0.00 <0.10 K/[facility] LAB HEMETOLOGY METHOD 01/18/2025 6:25 AM EDT [facility] Blood Venous blood specimen / Unknown Venipuncture / Unknown 01/18/2025 5:56 AM EDT 01/18/2025 6:11 AM EDT Nithya CORRALES LAB BLOOD ORDERABLES Final Resul t [facility] [address] [place] [address], [place] [phone] * ECG 12 lead (01/17/2025 9:46 PM EDT) Pathologist [facility] Ventricular Rate ECG 88 BPM GEMUSE Atrial Rate 88 BPM GEMUSE P-R Interval 148 ms GEMUSE QRS Duration 98 ms GEMUSE Q-T Interval 374 ms GEMUSE QTc 452 ms GEMUSE P Wave Bath 38 degrees GEMUSE R Bath 0 degrees GEMUSE T Bath 19 degrees GEMUSE ECG Interpretation Normal sinus rhythm Minimal voltage criteria for LVH, may be normal variant Borderline ECG When compared with ECG of 10-JAN-2025 22:25, No significant change was found Confirmed by Jad GARZA YUFENG ([id number]) on 01/19/2025 7:12:23 PM GEMUSE 01/17/2025 9:46 PM EDT 01/19/2025 7:12 PM EDT Yuriy Ellis MD ECG ORDERABLES Final Result GEM[facility] * XR Chest 1 View (01/17/2025 8:41 PM EDT) Anatomical Region Laterality Modality Body Radiographic Kiesha ging 01/18/2025 3:32 AM EDT Impressions 01/18/2025 3:33 AM EDT FINDINGS/IMPRESSION: Hypoventilatory examination. Cardiomegaly. Bronchovascular crowding. No consolidation or effusion. -------- FINAL REPORT -------- Dictated By: Pancho Carl Dictated Date: 01/18/2025 03:32 ET Assigned Physician: Pancho Carl Reviewed and Electronically Signed By: Pancho Carl Signed Date: 01/18/2025 03:33 ET Workstation ID: [id number] Transcribed By: Self Edit Transcribed Date: 01/18/2025 03:32 ET Narrative 01/18/2025 3:33 AM EDT XR CHEST 1 VIEW INDICATION: sepsis TECHNIQUE: XR CHEST 1 VIEW COMPARISON: No priors available. Procedure Note Pancho Carl MD - 01/18/2025 XR CHEST 1 VIEW INDICATION: sepsis TECHNIQUE: XR CHEST 1 VIEW COMPARISON: No priors available. IMPRESSION: FINDINGS/IMPRESSION: Hypoventilatory examination. Cardiomegaly.Bronchovascular crowding. No consolidation or effusion. -------- FINAL REPORT -------- Dictated By: Pancho Carl Dictated Date: 01/18/2025 03:32 ET Assigned Physician: Pancho Carl Reviewed and Electronically Signed By: Pancho Carl Signed Date: 01/18/2025 03:33 ET Workstation ID: [id number] Transcribed By: Self Edit Transcribed Date: 01/18/2025 03:32 ET Iveth CORRALES IMG XR PROCEDURES Final Resul t * Respiratory virus panel molecular study (01/17/2025 8:18 PM EDT) Pathologist [facility] Adenovirus Detection by PCR Not Detected Not Detected LAB MICROBIOLOGY METHOD 01/17/2025 9:29 PM EDT [facility] Influenza A PCR Not Detected Not Detected LAB MICROBIOLOGY METHOD 01/17/2025 9:29 PM EDT [facility] Influenza B PCR Not Detected Not Detected LAB MICROBIOLOGY METHOD 01/17/2025 9:29 PM EDT [facility] Coronavirus 229E Not Detected Not Detected LAB MICROBIOLOGY METHOD 01/17/2025 9:29 PM EDT [facility] Coronavirus HKU1 Not Detected Not Detected LAB MICROBIOLOGY METHOD 01/17/2025 9:29 PM EDT [facility] Coronavirus OC43 Not Detected Not Detected LAB MICROBIOLOGY METHOD 01/17/2025 9:29 PM EDT [facility] Coronavirus NL63 Not Detected Not Detected LAB MICROBIOLOGY METHOD 01/17/2025 9:29 PM EDT [facility] Parainfluenza Virus 1 Not Detected Not Detected LAB MICROBIOLOGY METHOD 01/17/2025 9:29 PM EDT [facility] Parainfluenza Virus 2 Not Detected Not Detected LAB MICROBIOLOGY METHOD 01/17/2025 9:29 PM EDT [facility] Parainfluenza Virus 3 Not Detected Not Detected LAB MICROBIOLOGY METHOD 01/17/2025 9:29 PM EDT [facility] Parainfluenza Virus 4 Not Detected Not Detected LAB MICROBIOLOGY METHOD 01/17/2025 9:29 PM EDT [facility] RSV PCR Not Detected Not Detected LAB MICROBIOLOGY METHOD 01/17/2025 9:29 PM EDT [facility] Human Metapneumovirus A and B Not Detected Not Detected LAB MICROBIOLOGY METHOD 01/17/2025 9:29 PM EDT [facility] Rhinovirus/Entero virus Not Detected Not Detected LAB MICROBIOLOGY METHOD 01/17/2025 9:29 PM EDT [facility] Bordetella pertussis Not Detected Not Detected LAB MICROBIOLOGY METHOD 01/17/2025 9:29 PM EDT [facility] Bordetella parapertussis Not Detected Not Detected LAB MICROBIOLOGY METHOD 01/17/2025 9:29 PM EDT [facility] Mycoplasma pneumo by PCR Not Detected Not Detected LAB MICROBIOLOGY METHOD 01/17/2025 9:29 PM EDT [facility] Chlamydia pneumoniae Not Detected Not Detected LAB MICROBIOLOGY METHOD 01/17/2025 9:29 PM EDT [facility] SARS COV-2 Not Detected Not Detected LAB MICROBIOLOGY METHOD 01/17/2025 9:29 PM EDT [facility] Swab Both anterior nares / Unknown Non-blood Collection / Unknown 01/17/2025 8:18 PM EDT 01/17/2025 8:27 PM EDT Narrative [facility] - 01/17/2025 9:29 PM EDT Testing was performed using the [employer] Respiratory Pathogen PCR Assay. All results must be correlated with the clinical findings. Results should not be used as the sole basis for diagnosis. False Negative results may occur from the presence of sequence variants in the region targeted by the assay or the presence of inhibitors. Results may be affected by concurrent antiviral/antimicrobial therapy or levels of organisms that are below the limit of detection. us Nithya CORRALES LAB MICROBIOLOGY - GENERAL ORDER SUSIE Final Result [facility] [address] [place] [address], [place] [phone] * (ABNORMAL) Urinalysis with reflex microscopic and culture (01/17/2025 8:17 PM EDT) Specific [place] Urine 1.022 1.003 - 1.030 LAB URINALYSIS - AUTOMATED METHOD 01/17/2025 8:39 PM [facility] pH, Urine 6.5 5.0 - 8.0 pH LAB URINALYSIS - AUTOMATED METHOD 01/17/2025 8:39 PM [facility] Leukocytes, Urine Negative Negative LAB URINALYSIS - AUTOMATED METHOD 01/17/2025 8:39 PM [facility] Nitrite, Urine Negative Negative LAB URINALYSIS - AUTOMATED METHOD 01/17/2025 8:39 PM [facility] Protein, Urine 30(A) <=Trace mg/dL LAB URINALYSIS - AUTOMATED METHOD 01/17/2025 8:39 PM [facility] Glucose, Urine Negative Negative mg/dL LAB URINALYSIS - AUTOMATED METHOD 01/17/2025 8:39 PM EDT [facility] Ketones, Urine Trace(A) Negative mg/dL LAB URINALYSIS - AUTOMATED METHOD 01/17/2025 8:39 PM [facility] Urobilinogen, Urine 0.2 0.2 - 1.0 mg/dL LAB URINALYSIS - AUTOMATED METHOD 01/17/2025 8:39 PM [facility] Bilirubin, Urine Negative Negative LAB URINALYSIS - AUTOMATED METHOD 01/17/2025 8:39 PM EDT [facility] Blood, Urine Negative Negative LAB URINALYSIS - AUTOMATED METHOD 01/17/2025 8:39 PM [facility] RBC, Urine 6.3(H) 0 - 4 /HPF LAB URINALYSIS - AUTOMATED METHOD 01/17/2025 8:39 PM [facility] WBC, Urine 2.2 0 - 4 /HPF LAB URINALYSIS - AUTOMATED METHOD 01/17/2025 8:39 PM [facility] Squamous Epithelial, Urine 46 0 - 60 /LPF LAB URINALYSIS - AUTOMATED METHOD 01/17/2025 8:39 PM [facility] Bacteria, Urine Negative Negative /HPF LAB URINALYSIS - AUTOMATED METHOD 01/17/2025 8:39 PM [facility] Hyaline Casts, Urine 2.0 0 - 3 /LPF LAB URINALYSIS - AUTOMATED METHOD 01/17/2025 8:39 PM [facility] Urine Urine specimen obtained by clean catch procedure / Unknown Non-blood Collection / Unknown 01/17/2025 8:17 PM EDT 01/17/2025 8:27 PM EDT us Nithya CORRALES LAB URINE ORDERABLES Final Resul t [facility] [address] [place] [address], [place] [phone] * Mckeon urine culture tube (01/17/2025 8:17 PM EDT) Extra Tube Hold for add-ons. 01/18/2025 1:01 PM EDT [facility] Comment:Auto resulted. Urine Urine specimen obtained by clean catch procedure / Unknown Non-blood Collection / Unknown 01/17/2025 8:17 PM EDT 01/18/2025 7:22 AM EDT us Nithya CORRALES LAB URINE ORDERABLES Final Resul t [facility] [address] [place] [address], [place] [phone] * POCT Glucose, blood (01/17/2025 7:36 PM EDT) Glucose POCT 90 70 - 100 mg/dL 01/17/2025 7:36 PM EDT [facility] Blood Capillary blood specimen / Unknown 01/17/2025 7:36 PM EDT 01/17/2025 7:37 PM EDT Yuriy Ellis MD LAB POINT OF CARE TE ST DOCKED DEVICE UNSOLICITED RESULTS Final Result [facility] [address] [place] [address], [place] [phone] * XR Knee 4+ Views Left (01/17/2025 4:17 PM EDT) Anatomical Region Laterality Modality Lower Extremities, Knee Left Radiogra phic Imaging 01/17/2025 4:20 PM EDT Impressions 01/17/2025 4:21 PM EDT Degenerative changes of the left knee, similar to 01/02/2025. -------- FINAL REPORT -------- Dictated By: Chepe Noland Dictated Date: 01/17/2025 16:20 ET Assigned Physician: Chepe Noland Reviewed and Electronically Signed By: Chepe Noland Signed Date: 01/17/2025 16:21 ET Workstation ID: [id number] Transcribed By: Self Edit Transcribed Date: 01/17/2025 16:20 ET Narrative 01/17/2025 4:21 PM EDT PROCEDURE: Radiographs of the left knee. HISTORY: pain. COMPARISON: 01/02/2025. FINDINGS: Moderate tricompartmental osteophytes with moderate articular surface irregularity of the patella, similar to the previous study. No focal bony lesion or fracture. Small joint effusion. Procedure Note Chepe Noland MD - 01/17/2025 PROCEDURE: Radiographs of the left knee. HISTORY: pain. COMPARISON: 01/02/2025. FINDINGS: Moderate tricompartmental osteophytes with moderate articular surfaceirregularity of the patella, similar to the previous study. No focal bonylesion or fracture. Small joint effusion. IMPRESSION: Degenerative changes of the left knee, similar to 01/02/2025. -------- FINAL REPORT -------- Dictated By: Chepe Noland Dictated Date: 01/17/2025 16:20 ET Assigned Physician: Chepe Noland Reviewed and Electronically Signed By: Chepe Noland Signed Date: 01/17/2025 16:21 ET Workstation ID: [id number] Transcribed By: Self Edit Transcribed Date: 01/17/2025 16:20 ET us Cristhian Pearson MD IMG XR PROCEDURES Final Result * Vascular US Duplex Lower Extremity Venous Bilateral (01/17/2025 1:18 PM EDT) Anatomical Region Laterality Modality Vascular, Abdomen Ultrasound 01/17/2025 1:36 PM EDT Impressions 01/17/2025 1:37 PM EDT NO RIGHT OR LEFT LOWER EXTREMITY DEEP VENOUS THROMBOSIS. -------- FINAL REPORT -------- Dictated By: Pancho Carl Dictated Date: 01/17/2025 13:36 ET Assigned Physician: Pancho Carl Reviewed and Electronically Signed By: Pancho Carl Signed Date: 01/17/2025 13:37 ET Workstation ID: [id number] Transcribed By: Self Edit Transcribed Date: 01/17/2025 13:36 ET Narrative 01/17/2025 1:37 PM EDT PROCEDURE: VAS US DUPLEX LOWER EXT VENOUS BILAT INDICATION: edema TECHNIQUE: 2-D and color Doppler imaging of the lower extremity venous vasculature with compression and augmentation maneuvers. COMPARISON: No priors available. FINDINGS: RIGHT: There is normal flow, compression, and augmentation from the common femoral through the popliteal vein. Visualized calf veins unremarkable. LEFT: There is normal flow, compression, and augmentation from the common femoral through the popliteal vein. Visualized calf veins unremarkable. Procedure Note Pancho Carl MD - 01/17/2025 PROCEDURE: VAS US DUPLEX LOWER EXT VENOUS BILAT INDICATION: edema TECHNIQUE: 2-D and color Doppler imaging of the lower extremity venousvasculature with compression and augmentation maneuvers. COMPARISON: No priors available. FINDINGS: RIGHT: There is normal flow, compression, and augmentation from the commonfemoral through the popliteal vein. Visualized calf veins unremarkable. LEFT: There is normal flow, compression, and augmentation from the commonfemoral through the popliteal vein. Visualized calf veins unremarkable. IMPRESSION: NO RIGHT OR LEFT LOWER EXTREMITY DEEP VENOUS THROMBOSIS. -------- FINAL REPORT -------- Dictated By: Pancho Carl Dictated Date: 01/17/2025 13:36 ET Assigned Physician: Pancho Carl Reviewed and Electronically Signed By: Pancho Carl Signed Date: 01/17/2025 13:37 ET Workstation ID: [id number] Transcribed By: Self Edit Transcribed Date: 01/17/2025 13:36 ET Cristhian Pearson MD CV VASCULAR PROCEDURES Final Re sult * Blood Culture, Peripheral Draw #2 (01/17/2025 12:38 PM EDT) Only the most recent of2 resultswithin the time period is included. [facility] [address] [facility] Culture, Blood No growth at 5 days 01/22/2025 1:01 PM EDT [facility] Blood Venous blood specimen / Unknown Venipuncture / Unknown 01/17/2025 12:38 PM EDT 01/17/2025 12:43 PM EDT Cristhian Pearson MD LAB MICROBIOLOGY - GENERAL TONY TATE Final Result [facility] [address] [place] [address], [place] [phone] * APTT (01/17/2025 12:38 PM EDT) aPTT 33.1 24.1 - 39.3 sec LAB COAGULATION METHOD 01/17/2025 12:59 PM EDT [facility] Blood Venous blood specimen / Unknown Venipuncture / Unknown 01/17/2025 12:38 PM EDT 01/17/2025 12:43 PM EDT Cristhianrebecca Pearson MD LAB BLOOD ORDERABLES Final Resu lt Performing Organization Address City/[facility]/ZIP Co de Phone Number [facility] [address] [place] [address], [place] [phone] * (ABNORMAL) Prothrombin time with INR (01/17/2025 12:38 PM EDT) Protime 14.4(H) 10.6 - 13.9 sec LAB COAGULATION METHOD 01/17/2025 12:59 PM EDT [facility] INR 1.2 LAB COAGULATION METHOD 01/17/2025 12:59 PM EDT [facility] Blood Venous blood specimen / Unknown Venipuncture / Unknown 01/17/2025 12:38 PM EDT 01/17/2025 12:43 PM EDT Cristhianrebecca Pearson MD LAB BLOOD ORDERABLES Final Resu lt [facility] [address] [place] [address], [place] [phone] * (ABNORMAL) Lactate (01/17/2025 12:38 PM EDT) [facility] [address] [facility] Lactate 3.2(HH) 0.4 - 2.0 mmol/L LAB CHEMISTRY METHOD 01/17/2025 2:53 PM EDT [facility] Comment:Results verified by repeat testing Blood Venous blood specimen / Unknown Venipuncture / Unknown 01/17/2025 12:38 PM EDT 01/17/2025 12:43 PM EDT Cristhian Pearson MD LAB BLOOD ORDERABLES Final Resu lt [facility] [address] [place] [address], * Hepatitis C Screening (11/04/2023) [facility] Hepatitis C Screening Abstracted Historical Provider HEALTH MAINTENANCE Final Result * HIV Screening (07/06/2020) [facility] [address] [facility] HIV Screening Abstracted Historical Provider HEALTH MAINTENANCE Final Result from Last 3 Months or Most Recently Relevant to Health Maintenance Insurance [employer] [facility] MEDICARE Member Subscriber Plan / Payer (Ef fective 2024-Present) Name:ИВАН SCOTT Relation to Subscriber:Self Name:Иван Scott Payer ID:[id number] Group ID:[id number] Type:Not on file Address: [place] [address] [address] [id number] Advance Directives Documents on File Type Date Recorded Patient Information Consultant Expl anation Health Care Decision (hx) 09/05/2021 AD STRATTON DIRECTIVE Health Care Decision (hx) 09/05/2021 AD STRATTON DIRECTIVE Health Care Decision (hx) 09/05/2021 AD STRATTON DIRECTIVE Health Care Decision (hx) 09/05/2021 AD STRATTON DIRECTIVE Health Care Decision (hx) 09/05/2021 AD STRATTON DIRECTIVE Health Care Decision (hx) 09/05/2021 AD STRATTON DIRECTIVE Health Care Decision (hx) 09/05/2021 AD STRATTON DIRECTIVE Health Care Decision (hx) 09/05/2021 AD STRATTON DIRECTIVE Health Care Decision (hx) 09/05/2021 AD STRATTON DIRECTIVE Health Care Decision (hx) 09/05/2021 AD STRATTON DIRECTIVE Health Care Decision (hx) 09/05/2021 AD STRATTON DIRECTIVE Health Care Decision (hx) 09/05/2021 AD STRATTON DIRECTIVE Health Care Decision (hx) 09/05/2021 AD STRATTON DIRECTIVE Health Care Decision (hx) 09/05/2021 AD STRATTON DIRECTIVE Health Care Decision (hx) 09/05/2021 AD STRATTON DIRECTIVE Health Care Decision (hx) 09/05/2021 AD STRATTON DIRECTIVE Health Care Decision (hx) 09/05/2021 AD STRATTON DIRECTIVE Health Care Decision (hx) 09/05/2021 AD STRATTON DIRECTIVE Health Care Decision (hx) 09/05/2021 AD STRATTON DIRECTIVE Health Care Decision (hx) 09/05/2021 AD STRATTON DIRECTIVE Health Care Decision (hx) 09/05/2021 AD STRATTON DIRECTIVE Health Care Decision (hx) 09/05/2021 AD STRATTON DIRECTIVE Health Care Decision (hx) 09/05/2021 AD STRATTON DIRECTIVE Health Care Decision (hx) 09/05/2021 AD STRATTON DIRECTIVE Health Care Decision (hx) 09/05/2021 AD STRATTON DIRECTIVE Health Care Decision (hx) 09/05/2021 AD STRATTON DIRECTIVE Health Care Decision (hx) 09/05/2021 AD STRATTON DIRECTIVE Health Care Decision (hx) 09/05/2021 AD STRATTON DIRECTIVE Health Care Decision (hx) 09/05/2021 AD STRATTON DIRECTIVE Health Care Decision (hx) 09/05/2021 Trish Muñoz AD STRATTON DIRECTIVE * Full Code - Default (Latest Code Status on File) Date Activated Date Inactivated Comments 01/17/2025 3:54 PM 01/18/2025 1:33 PM This is orde r is used when code status has not been discussed with the patient, or code status is otherwise unknown/unconfirmed To update the patient's code status, place a code status order. Do not modify or discontinue any currently active code status orders. * Full Code - Default Date Activated Date Inactivated Comments 01/10/2025 11:12 AM 01/13/2025 4:13 PM This is ord er is used when code status has not been discussed with the patient, or code status is otherwise unknown/unconfirmed To update the patient's code status, place a code status order. Do not modify or discontinue any currently active code status orders. * Full Code - Default Date Activated Date Inactivated Comments 01/02/2025 6:36 PM 01/04/2025 4:48 PM This is orde r is used when code status has not been discussed with the patient, or code status is otherwise unknown/unconfirmed To update the patient's code status, place a code status order. Do not modify or discontinue any currently active code status orders. Healthcare Agents on File Name Relationship Healthcare Agent Relationshi p Communication Trish Muñoz Mother Health Care Agent Care Teams Information Tech Relationship Specialty Start Date End Date Chris Ackerman [address] [place], [place] PCP - General Internal Medicine 09/10/21
--- OUTSIDE RECORDS SUMMARY | 2025-04-18 11:45 | XMS_ITS | Encounter Summary ---
Author Organization [employer] Address [address] [place] [address] Care Team Providers Care White Sugar Syrup Operator Name Role Phone Chris Ackerman MD Primary Care Prov ider Encounter Details Date Type Department Care Team ([facility] st Contact Info) Description 01/12/2025 Orders Only [facility] MED & PEDS [address] [place] [address] ProviderGlenroy MD Social History Tobacco Use Types [...] [facility] ADULT D[facility]AL [address] [place] [address] Johnie Kearns documented as of this encounter Procedures Procedure Name Priority Date/Time Associated Diagnosis Comments ECG 12-LEAD Routine 01/10/2025 9:25 AM EDT documented in this encounter Results * ECG 12 lead (01/10/2025 9:25 AM EDT) us Historical Provider ECG ORDERABLES Final Res ult documented in this encounter Visit Diagnoses Not on filedocumented in this encounter Additional Health Concerns Assessment Noted Time PHQ-9 Depression Total Score: 2 11/04/19 24 9:37 AM EDT documented as of this encounter Care Teams White Sugar Syrup Operator Relationship Specialty Start Date End Date Chris Ackerman MD [address] [place] [address] PCP - General Internal Medicine 05/24/20 Haleigh Vanegas Compression Molding Machine TenderPublic Transit Bus Driver 12/28/23 [employer] 01/14/25 documented as of this encounter
--- OUTSIDE RECORDS SUMMARY | 2025-04-18 11:45 | XMS_ITS | Encounter Summary ---
Author Organization [employer] Address [address] [place] [address] [address] [place] [address] Care Team Providers Care Applications Development Analyst Name Role Phone Chris Ackerman MD Primary Care Prov ider Reason for Visit * Reason Comments Med Refill Encounter Details Date Type Department Care Team (Late st Contact Info) Description 05/15/2023 Refill [facility] MED & PEDS [address] [place] [address] Chris Ackerman MD [address] [place] [address] Anxiety Social History Tobacco Use Types Packs/Day Years [...] 3:00 PM EST Office Visit [facility] ADULT DENTAL [address] [place] [address] Johnie Kearns documented as of this encounter Visit Diagnoses Diagnosis Anxiety Anxiety state, unspecified documented in this encounter Additional Health Concerns Assessment Noted Time PHQ-9 Depression Total Score: 10 023 9:25 AM EDT documented as of this encounter Care Teams Applications Development Analyst Relationship Specialty Start Date End Date Chris Ackerman MD [address] [place] [address] PCP - General Internal Medicine 05/24/20 Haleigh Vanegas PiercerValve Machine Operator 12/28/23 [employer] 01/14/25 documented as of this encounter
--- OUTSIDE RECORDS SUMMARY | 2025-04-18 11:45 | XMS_ITS | Encounter Summary ---
Author Organization [employer] Address [address] [place] [address] Care Team Providers Care Physics Technician Name Role Phone Chris Ackerman MD Primary Care Prov ider Encounter Details Date Type Department Care Team ([facility] st Contact Info) Description 03/06/2025 Orders Only [facility] MED & PEDS [address] [place], [place] [phone] Chris Ackerman MD [address] [place] [address] Social History Tobacco Use Types Packs/Day Years [...] [facility] [address] [place] [address] Johnie Kearns documented as of this encounter Visit Diagnoses Not on filedocumented in this encounter Additional Health Concerns Assessment Noted Time PHQ-9 Depression Total Score: 2 11/04/19 24 9:37 AM EDT documented as of this encounter Care Teams Physics Technician Relationship Specialty Start Date End Date Chris Ackerman MD [address] [place] [address] PCP - General Internal Medicine 05/24/20 Haleigh Vanegas Chemistry Quality Control TechnicianRegistered Veterinary Technician 12/28/23 [employer] 01/14/25 documented as of this encounter
--- OUTSIDE RECORDS SUMMARY | 2025-04-18 11:45 | XMS_ITS | Encounter Summary ---
Author Organization [employer] Address [address] [place] [address] Care Team Providers Care Circular Knitter Name Role Phone Chris Ackerman MD Primary Care Prov ider Reason for Visit * Reason Onset Date Comments Prior Authorization 08/20/2023 Encounter Details Date Type Department Care Team ([facility] st Contact Info) Description 08/20/2023 Telephone [facility] MED & PEDS [address] [place] [address] Chris Ackerman MD [address] [place] [address] Prior Authorization Social History Tobacco Use Types Packs/Day Years [...] encounter Miscellaneous Notes * Telephone Encounter - Marta Noble - 08/20/2023 3:14 PM EST Tc from pt states PA is needed for oxyCODONE (Roxicodone) 5 MG immediate release tablet documented in this encounter Plan of Treatment Upcoming Encounters Date Type Department Care Team (Late st Contact Info) Description 09/25/2025 3:00 PM EST Office Visit [facility] ADULT DENTAL [address] [place] [address] Johnie Kearns documented as of this encounter Visit Diagnoses Not on filedocumented in this encounter Additional Health Concerns Assessment Noted Time PHQ-9 Depression Total Score: 10 023 9:25 AM EDT documented as of this encounter Care Teams Circular Knitter Relationship Specialty Start Date End Date Chris Ackerman MD [address] [place] [address] PCP - General Internal Medicine 05/24/20 Haleigh Vanegas Industrial Waste Treatment TechnicianSenior Sql Server Developer 12/28/23 [employer] 01/14/25 documented as of this encounter
--- OUTSIDE RECORDS SUMMARY | 2025-04-18 11:45 | XMS_ITS | Encounter Summary ---
Author Organization [employer] Address [address] [place] [address] [address] [place] [address] Care Team Providers Care Pre Sales Network Engineer Name Role Phone Chris Ackerman MD Primary Care Prov ider Encounter Details Date Type Department Care Team (Latest Contact Info) Description 01/01/2022 Abstract [facility] CONVERSIONS Dental, Provider, DDS Social History Tobacco [...] 3:00 PM EST Office Visit [facility] ADULT DENTAL [address] [place] [address] Johnie Kearns documented as of this encounter Visit Diagnoses Not on filedocumented in this encounter Care Teams Pre Sales Network Engineer Relationship Specialty Start Date End Date Chris Ackerman MD [address] [place] [address] PCP - General Internal Medicine 05/24/20 Haleigh Vanegas Employment Appeals ExaminerSupervisor Matrix 12/28/23 [employer] 01/14/25 documented as of this encounter
--- OUTSIDE RECORDS SUMMARY | 2025-04-18 11:45 | XMS_ITS | Encounter Summary ---
Author Organization [employer] Address [address] [facility] [address] [place] [address] Care Team Providers Care Syruper Name Role Phone Chris Ackerman MD Primary Care Prov ider Reason for Referral * Consultation (Routine) - Closed Specialty Diagnoses / Procedures Referred By Contac t Referred To Contact Pharmacy Diagnoses Obstructive sleep apnea syndrome Benign essential hypertension Hypertensive kidney disease with stage 3 chronic kidney disease, unspecified whether stage 3a or 3b CKD (CMS/HCC) Current moderate episode of major depressive disorder without prior episode (CMS/HCC) Chronic midline low back pain with bilateral sciatica Morbid obesity (CMS/HCC) Laury Maria MD [address] [place] [address] Phone: tel: fax: Referral ID Status Reason Start Date Expiration Date V isits Requested Visits Authorized [id number] Closed Continuity of Care 07/30/2023 07/29/2024 1 1 Encounter Details Date Type Department Care Team (Late st Contact Info) Description 07/30/2023 Orders Only [facility] MEDICINE [address] [place], [place] [phone] Laury Maria MD [address] [place] [address] Obstructive sleep apnea syndrome (Primary Dx); Benign essential hypertension; Hypertensive kidney disease with stage 3 chronic kidney disease, unspecified whether stage 3a or 3b CKD (CMS/HCC); Current moderate episode of major depressive disorder without prior episode (CMS/HCC); Chronic midline low back pain with bilateral sciatica; Morbid obesity (CMS/HCC) Social History Tobacco Use Types Packs/Day Years [...] Description 09/25/2025 3:00 PM EST Office Visit [facility] ADULT DENTAL [address] [place] [address] Johnie Kearns Scheduled Referrals Name Type Priority Associated Diagnoses Orde r Schedule Referral to Pharmacy MTM Outpatient Referral Routine Obstructive sleep apnea syndrome Benign essential hypertension Hypertensive kidney disease with stage 3 chronic kidney disease, unspecified whether stage 3a or 3b CKD (CMS/HCC) Current moderate episode of major depressive disorder without prior episode (CMS/HCC) Chronic midline low back pain with bilateral sciatica Morbid obesity (CMS/HCC) Ordered: 07/30/2023 documented as of this encounter Visit Diagnoses Diagnosis Obstructive sleep apnea syndrome- Primary Obstructive sleep apnea (adult) (pediatric) Benign essential hypertension Essential hypertension, benign Hypertensive kidney disease with stage 3 chronic kidney disease, unspecified whether stage 3a or 3b CKD (CMS/HCC) Current moderate episode of major depressive disorder without prior episode ([facility]) Chronic midline low back pain with bilateral sciatica Morbid obesity ([facility]) Morbid obesity documented in this encounter Additional Health Concerns Assessment Noted Time PHQ-9 Depression Total Score: 10 023 9:25 AM EDT documented as of this encounter Care Teams Syruper Relationship Specialty Start Date End Date Chris Ackerman MD [address] [place] [address] PCP - General Internal Medicine 05/24/20 Haleigh Vanegas PsychometristV Belt Finisher 12/28/23 [employer] 01/14/25 documented as of this encounter
--- OUTSIDE RECORDS SUMMARY | 2025-04-18 11:45 | XMS_ITS | Encounter Summary ---
Author Organization [employer] Address [address] [place] [address] [address] [place] [address] Care Team Providers Care Drop Hammer Setter Up Name Role Phone Chris Ackerman MD Primary Care Prov ider Reason for Visit * Reason Onset Date Comments ER Follow-up 10/27/2022 Encounter Details Date Type Department Care Team ([facility] st Contact Info) Description 10/27/2022 Telephone [facility] [address], [place] [phone] Chris Ackerman MD [address] [place] [address] ER Follow-up Social History Tobacco Use Types Packs/Day Years Used Date Smoking Tobacco: Never Smokeless Tobacco: Never Alcohol Use Standard Drinks/Week Comments Defer 0 (1 standard drink = 0.6 oz pur e alcohol) Sex and Gender Information Value Date Recorded Sex Assigned at Male 06/23/2022 10:19 AM EDT Legal Sex Male 10:19 AM EDT Gender Identity Male 06/23/2022 10:19 AM EDT Sexual Orientation Straight 06/23/2022 10 :19 AM EDT COVID-19 Exposure Response Date Recorded In the last 10 days, have yo u been in contact with someone who was confirmed or suspected to have Coronavirus/COVID-19? No / Unsure 10/15/2022 10:39 AM EST documented as of this encounter Miscellaneous Notes * Telephone Encounter - Marsha Rae - 10/27/2022 11:35 AM EST Patient calling to report ED visit on 10/07/22 for foot pain and 10/08/22 for tooth pain. Pt was seen at [facility]. Patient advised will forward to triage nurse for follow up. Please call [phone] Speaks Mauritian. documented in this encounter Plan of Treatment Upcoming Encounters Date Type Department Care Team ([facility] st Contact Info) Description 09/25/2025 3:00 PM EST Office Visit [facility] [address] [place] [address] Johnie Kearns documented as of this encounter Visit Diagnoses Diagnosis Anxiety Anxiety state, unspecified Arthritis Unspecified arthropathy, site unspecified documented in this encounter Care Teams Drop Hammer Setter Up Relationship Specialty Start Date End Date Chris Ackerman MD [address] [place] [address] PCP - General Internal Medicine 05/24/20 Haleigh Vanegas Shoe Repairer HelperNursing Specialist 12/28/23 [facility] 01/14/25 documented as of this encounter
--- OUTSIDE RECORDS SUMMARY | 2025-04-18 11:46 | XMS_ITS ---
Author Name [facility] Organization Unknown History of Medication Use Medication Directions Dispensed Refills Start Date End Date Stat us oxyCODONE (ROXICODONE) 5 mg immediate release tablet Take 1 tablet (5 mg total) by mouth every 6 (six) hours if needed for severe pain for up to 2 days. Max Daily Amount: 20 mg 01/18/2025 01/21/2025 active predniSONE (DELTASONE) 20 mg tablet Take 2 tablets (40 mg total) by mouth 1 (one) time each day for 5 doses. 01/18/2025 active nicotine (NICODERM CQ) 14 mg/[address] 1 patch on the skin 1 (one) time each day. 01/13/2025 active allopurinoL (ZYLOPRIM) 100 mg tablet Take 1 tablet (100 mg total) by mouth 1 (one) time each day. 01/12/2025 active ceFAZolin 2 g in sterile water 20 mL syringe Infuse 2 g into a venous catheter every 8 (eight) hours for 13 days. 01/12/2025 active amLODIPine (NORVASC) 5 mg tablet Take 1 tablet (5 mg total) by mouth 1 (one) time each day. 01/04/2025 active hydrALAZINE (APRESOLINE) 25 mg tablet Take 2 tablets (50 mg total) by mouth 2 (two) times a day. 01/04/2025 active losartan (COZAAR) 25 mg tablet Take 1 tablet (25 mg total) by mouth 1 (one) time each day. 01/04/2025 active acetaminophen (TYLENOL 8 HOUR) 650 mg 8 hr tablet Take 1 tablet (650 mg total) by mouth every 8 (eight) hours if needed for mild pain or moderate pain. Do not crush, chew, or split. 12/29/2024 active Zepbound 5 mg/0.5 mL injection INJECT 5 MG SUBCUTANEOUSLY EVERY 7 DAYS FOR 28 DAYS 12/27/2024 active gabapentin (NEURONTIN) 600 mg tablet Take 1 tablet (600 mg total) by mouth 3 (three) times a day. 12/05/2024 active CHOLECALCIFEROL, VITAMIN D3, ORAL Take by mouth. 2000 units active DULoxetine (CYMBALTA) [address] capsule Take 2 capsules (120 mg total) by mouth 1 (one) time each day. active fluticasone propionate (FLONASE) 50 mcg/actuation nasal spray Administer 2 sprays into each nostril 1 (one) time each day. active metoprolol tartrate (LOPRESSOR) 50 mg tablet Take 50 mg by mouth 2 times daily. active pantoprazole (PROTONIX) 40 mg packet Take 1 packet (40 mg total) by mouth 1 (one) time each day before breakfast. active Allergies Allergen Reaction Severity Comment Documented Date Source Statu s SODIUM HYALURONATE (VISCOSUP) GOUT Triggers gout flare-ups 01/05/2025 [facility] active HYALURONIC ACID GOUT Triggers gou t flare-ups [facility] Problems Problem Status Onset Date Problem Type Date of Resoluti on Source Acute gout due to renal impairment involving left knee active 2025-01-04 ProblemAct [facility] Septic arthritis ([facility] V24, [facility] V28) active 2025-01-10 ProblemAct [facility] Class 3 severe obesity with body mass index (BMI) of 60.0 to 69.9 in adult ([facility] V24, [facility] V28) active 2024-05-30 ProblemAct [facility] Asthma active 2025-01-11 ProblemAct [facility] Arthritis of knee active 2025-01-02 ProblemAct [facility] Chronic renal impairment, stage 3 (moderate) ([facility] V24, [facility] V28) active 2025-01-11 ProblemAct [facility] Acute gout active 2025-01-18 ProblemAct [facility] Stage 3 chronic kidney disease due to benign hypertension ([facility] V24, [facility] V28) active 2024-02-23 ProblemAct [facility] Primary hypertension active 2024-02-23 ProblemAct [facility] Obstructive sleep apnea syndrome active 2025-01-11 ProblemAct [facility] Wound disruption, post-op, skin active 2021-12-12 ProblemAct [facility] Gastroesophageal reflux disease without esophagitis active 2025-01-11 ProblemAct [facility] Smoking history active 2025-01-[address] [facility]
[2025-04-18 14:43] LABS: Anion Gap 12 (12-20); Blood Urea Nitrogen 14 mg/dL (9-16); Calcium 9.0 mg/dL (8.4-10.2); Carbon Dioxide 26 mmol/L (22-29); Chloride 110 mmol/L (96-108); Estimated Glomerular Filt Rate 40; Potassium 4.7 mmol/L (3.3-5.1); Sodium 143 mmol/L (135-145)
== END 2025-04-18 10:53 | disposition home or self-care (01) ==
LOC: HO.CHCLDS 10:52
PROVIDERS: Visit Provider Internal Medicine
DX: I12.9 Hypertensive chronic kidney disease with stage 1 through stage 4 chronic kidney disease, or unspecified chronic kidney disease (principal); N18.30 Chronic kidney disease, stage 3 unspecified
CPT/HCPCS: 36415; 80048